=== PATIENT | male | born 1935 | race Caucasian/White ===

== ENCOUNTER 2016-10-01 18:26 | Inpatient (IN) ==
--- NOTE | 2016-10-01 18:54 | Emergency Department Note ---
Disposition Clinical Impression: Cerebrovascular accident Disposition: Admitted As Inpatient Condition: Good General Adult HPI - General Chief complaint: ED Neuro Symptoms/Deficit Stated complaint: cva Time Seen by Provider: 10/01/16 18:35 Source: EMS - History of Present Illness Pain Scale: 0 - Related Data Home Medications Medication Instructions Recorded Confirmed Hydrochlorothiazide 25 mg PO DAILY 10/01/16 10/01/16 Insulin ASPART [Novolog Flexpen] 4 unit SQ BID 10/01/16 10/02/16 Insulin ASPART [Novolog Flexpen] 8 unit SQ QPM 10/01/16 10/01/16 Insulin Glargine [Lantus] 36 unit SQ HS 10/01/16 10/01/16 Losartan [Cozaar] 25 mg PO DAILY 10/01/16 10/01/16 Metformin HCl [Metformin HCl ER] 1,000 mg PO QPM 10/01/16 10/01/16 Metoprolol [Lopressor] 12.5 mg PO BID 10/01/16 10/01/16 Pantoprazole Sodium [Protonix] 20 mg PO BID 10/01/16 10/01/16 Simvastatin [Zocor] 80 mg PO QPM 10/01/16 10/01/16 Warfarin [Coumadin] 4 mg PO 1800 10/01/16 10/01/16 Allergies Allergy/AdvReac Type Severity Reaction Status Date / Time No Known Allergies Allergy Verified 10/01/16 20:26 Past Medical History - Past Medical History Medical history: Reports: atrial fibrillation, coronary artery disease, diabetes , GERD, hyperlipidemia, hypertension - Social History Smoking Status: Former smoker Smokeless Tobacco Status: No Alcohol use: Reports: none Drug use: Reports: none Physical Exam - General General appearance: alert, in no apparent distress Course - Reevaluation(s) Reevaluation #1: Saw the patient with the resident, Dr. Ham. Patient was sent over from the [facility] due to concern about stroke. Patient started having symptoms 4 days ago. Symptoms include weakness of hand and arm on the right-hand side. Eventually developed some speech issues and trouble finding words. Extremity symptoms have resolved at this point and speech issues reportedly have improved as well. He did not present at the time of onset because [place] and [place] not want have to be stuck in a hospital down there. He is, home and first thing he did was go to the [facility] to be looked at. They sent him here after CT scan showed evidence of subacute stroke. On examination we see the patient having some trouble finding words but otherwise the rest of the neurologic examination is unremarkable. His laboratory workup is Re: Been done at the [facility]. No significant abnormalities are there. We will then proceed with MRI. It is unclear as to what the disposition should be on this patient given that symptoms started 4 days ago and are improving significantly. We will discuss the case with neurology once the MRI is done. Time: 18:53 Reevaluation #2: MRI came back showing acute infarcts in the left frontal, parietal, and thalamic regions. I discussed this with the radiologist and specifically asked when he is saying acute does he mean 4 days ago her to see me now, and he says that it is acute meaning that is happening now. We immediately called the neurologist on-call to discuss the findings because the MRI findings are not entirely consistent with the patient's presentation at this time. He really has no neurologic deficit except for trouble finding words at times. His NIH is a 1, 2 at the most if he stretches. He is currently on Coumadin with an INR 1.7. Symptom onset was 4 days ago. For all these reasons, he is not a TPA candidate. Based on the neurologist guidance, we will admit the patient to the hospital. He thinks the patient needs a CTA of the neck and head. Patient's GFR is low. He needs to be hydrated before he gets the CTA. Neurologist was okay with this. We will arrange to get the patient admitted to the hospitalist. Time: 20:25 Vital Signs Temperature 98.2 F 10/01/16 18:30 Pulse Rate 105 10/01/16 18:30 Respiratory Rate 14 10/01/16 18:30 Blood Pressure 170/102 10/01/16 18:30 O2 Sat by Pulse Oximetry 96 10/01/16 18:30 Temperature 97.6 F 10/03/16 07:00 Pulse Rate 83 10/03/16 07:30 Respiratory Rate 16 10/03/16 07:30 Blood Pressure 106/77 10/03/16 07:30 O2 Sat by Pulse Oximetry 97 10/03/16 07:00 Oxygen Delivery Oxygen Delivery Room Air Medical Decision Making - Lab Data Result diagrams: 10/03/16 04:00 10/03/16 04:00 Lab Results 10/01/16 Range/Units 18:47 POC Glucose 146 H (58-89) Attestation Statement - Attestation Attestation: I, Dr. Hatfield, examined this patient [id number] and my medical decision- making was reviewed with Dr. Ham, Resident Physician. I agree with the documented findings, disposition and treatment plan as described except to the extent set forth below. Please see my progress notes for details.
--- NOTE | 2016-10-01 19:22 | Emergency Department Note ---
Disposition Clinical Impression: Cerebrovascular accident Qualifiers: CVA mechanism: unspecified Qualified Code(s): I63.9 - Cerebral infarction, unspecified Disposition: Admitted As Inpatient Condition: Good Time of Disposition: 21:02 Neuro HPI - General Chief Complaint: ED Neuro Symptoms/Deficit Stated Complaint: cva Time Seen by Provider: 10/01/16 18:35 Source: EMS Mode of arrival: EMS Limitations: no limitations Nursing Notes Reviewed: Yes Vital Signs Reviewed: Yes - History of Present Illness HPI Narrative: Mr. Márquez is a 81-year-old male with a PMH of DM, A. fib currently anticoagulated on Coumadin, hyperlipidemia, HTN, CAD who presents to the emergency department complaining of right arm weakness that began on Friday. The patient states that he was vacationing in [place] to experience weakness of the right arm, confusion. He deferred evaluation at that time because he did not want to be admitted to a hospital away from home. He arrived [facility] on Friday, [facility] He states that his weakness has resolved, however he is still experiencing difficulty with word finding and confusion. He states that his head feels "befuddled." He does note that he has some blurred vision in the right eye. He denies any difficulty with ambulation, balance problems, weakness, dizziness, chest pain, cough, wheezing, shortness of breath, abdominal pain, nausea, vomiting or diarrhea, numbness or tingling of any extremities. - Related Data Home Medications: Home Medications Medication Instructions Recorded Confirmed Hydrochlorothiazide 25 mg PO DAILY 10/01/16 10/01/16 Insulin ASPART [Novolog Flexpen] 4 unit SQ BID 10/01/16 10/01/16 Insulin ASPART [Novolog Flexpen] 8 unit SQ QPM 10/01/16 10/01/16 Insulin Glargine [Lantus] 36 unit SQ HS 10/01/16 10/01/16 Losartan [Cozaar] 25 mg PO DAILY 10/01/16 10/01/16 Metformin HCl [Metformin HCl ER] 1,000 mg PO QPM 10/01/16 10/01/16 Metoprolol [Lopressor] 12.5 mg PO BID 10/01/16 10/01/16 [place]-3/Dha/Epa/Fish Oil [Fish Oil 1,000 mg PO BID 10/01/16 10/01/16 1,000 mg Softgel] Pantoprazole Sodium [Protonix] 20 mg PO BID 10/01/16 10/01/16 Simvastatin [Zocor] 80 mg PO QPM 10/01/16 10/01/16 Warfarin [Coumadin] 4 mg PO 1800 10/01/16 10/01/16 Allergies/Adverse Reactions: Allergies Allergy/AdvReac Type Severity Reaction Status Date / Time No Known Allergies Allergy Verified 10/01/16 20:26 All systems ED: reviewed and negative except as stated. Past Medical History - Past Medical History Source: patient Medical history: Reports: atrial fibrillation, coronary artery disease, diabetes , GERD, hyperlipidemia, hypertension - Social History Smoking Status: Former smoker Smokeless Tobacco Status: No Alcohol use: Reports: none Drug use: Reports: none Physical Exam - General General appearance: alert, in no apparent distress - Head Head exam: atraumatic, normocephalic, normal inspection - Eye Eye exam: Present: normal appearance, PERRL, EOMI. Absent: nystagmus - ENT ENT exam: normal exam, normal oropharynx, mucous membranes moist - Neck Neck exam: Present: normal inspection, full ROM, trachea midline. Absent: tenderness, lymphadenopathy, thyromegaly - Chest Chest inspection: Present: normal inspection, symmetric chest wall rise. Absent : tenderness - Respiratory Respiratory exam: Present: normal lung sounds bilaterally. Absent: respiratory distress - Cardiovascular Cardiovascular exam: Present: regular rate, normal rhythm, normal heart sounds - Abdominal Exam Abdominal exam: Present: soft, Non-Tender, normal bowel sounds. Absent: tenderness, distention, guarding, rebound, rigidity - Extremities Exam Extremities exam: Present: normal inspection, full ROM, normal capillary refill. Absent: tenderness, pedal edema, calf tenderness - Back Exam Back exam: Present: normal inspection, full ROM. Absent: tenderness, CVA tenderness (R), CVA tenderness (L) - Neurological Exam Neurological exam: Present: alert, oriented X3, CN II-XII intact, normal gait. Absent: motor sensory deficit - Expanded Neurological Exam Patient oriented to: Present: person, place, time Speech: Present: fluid speech, expressive aphasia Cranial nerves: EOM function (II, III, IV, ): Normal, facial sensation (V): Normal, facial palsy (VII): Normal, gag reflex (IX): Normal, spinal accessory function (XI): Normal, tongue deviation (XII): Normal Cerebellar function: finger to nose: Normal, heel to baumann: Normal Motor strength - LUE: 5/5 Motor strength - RUE: 5/5 Motor strength - LLE: 5/5 Motor strength - RLE: 5/5 Upper motor neuron exam: herlinda neglect: Absent bilaterally, pronator drift: Absent bilaterally Sensory exam upper extremity: light touch: Normal Sensory exam lower extremity: light touch: Normal DTR: bicep (L): 2+, bicep (R): 2+, brachioradialis (L): 2+, brachioradialis (R) : 2+, patellar (L): 2+, patellar (R): 2+, Achilles tendon (L): 2+, Achilles tendon (R): 2+ Coma Scale Eye Opening: Spontaneous Coma Scale Motor Response: Obeys Commands Coma Scale Verbal Response: Oriented Coma Scale Total: 15 - Psychiatric Psychiatric exam: Present: normal affect, normal mood - Skin Skin exam: Present: warm, dry, intact, normal color. Absent: rash, diaphoresis , erythema Course Course Narrative: 81-year-old male with a PMH of DM, A. fib currently anticoagulated on Coumadin, hyperlipidemia, HTN, CAD who presents to the emergency department complaining of right arm weakness that began on Friday. The patient states that he was vacationing in [place] to experience weakness of the right arm, confusion. He deferred evaluation at that time because he did not want to be admitted to a hospital away from home. He arrived home on Friday, [facility]. He states that his weakness has resolved, however he is still experiencing difficulty with word finding and confusion. He states that his head feels "befuddled." He does note that he has some blurred vision in the right eye. He denies any difficulty with ambulation, balance problems, weakness, dizziness, chest pain, cough, wheezing, shortness of breath, abdominal pain, nausea, vomiting or diarrhea, numbness or tingling of any extremities. Patient is able to ambulate without difficulty. There are no focal abnormalities in his neurologic exam. He is alert and oriented to person, place , time. CN II-XII intact as tested. Muscle strength is 5\\5 upper extremities and lower extremities bilaterally. There is no sensory deficit on any extremities bilaterally. Coordination is intact. When the patient is talking, his speech is not slurred however he does seem to have difficulty finding certain words while he is conversing. Remainder of his exam is within normal limits. [facility] the head CT without contrast reveals no evidence of intracranial hemorrhage. There is a cortically based infarct in the left occipital lobe which may be recent\\subacute. Age indeterminate lacunar infarct in the left thalamus is also noted, with mild patchy low density in the periventricular white matter. CBC WNL. BMP essentially WNL, creatinine is elevated at 1.68, this appears to be at his baseline. INR subtherapeutic at 1.7. We will order an MRI to further evaluate the patient. poc glucose 146. Radiologist called with MRI results of acute microinfarcts within the left frontal lobe, left parietal lobe and left thalamus. Discussed the case with Dr. Jean with neurology. He feels that with patient' s symptomatology being all on the right, it is more likely that the clots are coming from carotid artery vs the atria. He would like to do a CTA to assess the carotid arteries however the patient's Cr is 1.68 and we are unable to do this. He would like to admit the patient overnight to evaluate the carotid arteries in the morning and perform an echo. His INR is 1.7, which is subtherapeutic. He would like to give an extra dose of the patient's Coumadin tonight to try to increase his INR into the therapeutic range. He will see the patient in the morning. Will admit to hospitalist service. The patient and his were updated on this plan and all questions were answered. - Reevaluation(s) Reevaluation #1: Patient updated on MRI results and plan. He denies any new or worsening symptoms. Time: 20:30 - Consultations Consultation #1: Discussed the case with Dr. Jean with neurology. He feels that with patient' s symptomatology being all on the right, it is more likely that the clots are coming from carotid artery vs the atria. He would like to do a CTA to assess the carotid arteries however the patient's Cr is 1.68 and we are unable to do this. He would like to admit the patient overnight to evaluate the carotid arteries in the morning and perform an echo. His INR is 1.7, which is subtherapeutic. He would like to give an extra dose of the patient's Coumadin tonight to try to increase his INR into the therapeutic range. He will see the patient in the morning. Time: 20:25 Consultation #2: Discussed the case with Dr. Saxena who has accepted the patient for admission. We discussed the coumadin dosing. The patient has not had his 4mg dose today. He states that they will evaluate the patient and order the evening coumadin dose. He has requested an EKG, which I have placed an order for. Vital Signs Temperature 98.2 F 10/01/16 18:30 Pulse Rate 105 10/01/16 18:30 Respiratory Rate 14 10/01/16 18:30 Blood Pressure 170/102 10/01/16 18:30 O2 Sat by Pulse Oximetry 96 10/01/16 18:30 Temperature 98.2 F 10/01/16 18:30 Pulse Rate 98 10/01/16 20:46 Respiratory Rate 16 10/01/16 22:00 Blood Pressure 141/95 10/01/16 22:00 O2 Sat by Pulse Oximetry 96 10/01/16 20:46 Oxygen Delivery Oxygen Delivery Room Air Neuro Symptoms/Deficit - Medical Records Medical records reviewed: Yes I reviewed the patient's medical records. - Lab Data Lab results reviewed: Yes I reviewed the patient's lab results. Lab Results 10/01/16 Range/Units 18:47 POC Glucose 146 H (58-89) - Radiology Data Radiology results reviewed: Yes I reviewed the patient's radiology results. Brain MRI 10/01/16 18:49 IMPRESSION: Acute microinfarcts within the left frontal lobe, the left parietal lobe, and the left thalamus. Case discussed with Dr. Ibarra at 8:06 p.m. on 10/01/2016. D/ / Corey Sharpe MD / Corey Sharpe MD Interpreting Provider: Corey Sharpe MD Checklist - LKW: 3-4.5 hrs Add. Contraindications Patient/family understanding: The patient/family members have been counseled and understood the risk, benefit , and alternatives of treatment.
[2016-10-01] MEDS ORDERED: Acetaminophen 325 MG TABLET PO PRN (22:39)
[2016-10-01 23:03] LABS: INR 1.8; Prothrombin Time 19.3 Seconds (9.4-12.1)
[2016-10-01 23:09] LABS: Basophils # 0.1 K/mcL (0.0-0.2); Basophils % 0.8 %; Eosinophils # 0.1 K/mcL (0.0-0.6); Eosinophils % 1.6 %; Hematocrit 50.3 % (37.5-50.1); Hemoglobin 16.6 g/dL (12.9-16.9); Immature Granulocytes % 0.4 % (0-4); Lymphocytes # 1.8 K/mcL (0.6-4.6); Lymphocytes % 19.7 %; Mean Corpuscular Hemoglobin 27.8 pg (28.0-33.3); Mean Corpuscular Volume 84.1 fL (83.0-100.0); Mean Platelet Volume 12.4 fL (9.4-12.4); Monocytes # 0.9 K/mcL (0.0-1.3); Monocytes % 10.5 %; Platelet Count 172 K/mcL (140-400); Red Blood Count 5.98 M/mcL (4.19-5.50); Red Cell Distribution Width 15.4 % (11.5-14.5)
[2016-10-01] MEDS ORDERED: *HR* Warfarin 4 MG TABLET PO ONE (23:15)
[2016-10-01 23:17] LABS: Calcium 10.5 mg/dL (8.6-10.8)
[2016-10-01] MEDS ORDERED: *HR* Dextrose 50 % in Water (Syg) 50 ML SYRINGE IVP PRN (23:25)
[2016-10-01] MEDS ORDERED: Dextrose Gel 15 GM PO PRN ×2 (23:25)
[2016-10-01] MEDS ORDERED: D5% in Water 1,000 ML IV PRN (23:25)
[2016-10-01] MEDS ORDERED: 0.9 % Sodium Chloride 1,000 ML IVC SCH (23:30)
--- NOTE | 2016-10-01 23:32 | Internal Med History&Physical ---
<Duncan Kumar - Last Filed: 10/02/16 00:16> Date of Encounter: 10/02/16 Time of Encounter: 11:00 Assessment and Plan (1) Cerebrovascular accident Current visit: Yes Status: Acute Patient complains of right sided upper extremity weakness that began on Friday while he was on vacation. He did not seek medical help until today. He denies ever having slurred speech or facial drooping. CN 2-12 are intact, muscle strength is now 5/5 bilaterally, no focal deficits. CT [facility] showed no evidence of intracranial hemorrhage; cortically based infarct in the left occipital lobe which may be recent or subacute. Also showed age indeterminate lacunar infarct in the left thalamus. MRI head showed acute microinfarcts within the left frontal lobe, left parietal lobe, and left thalamus. Neurology consulted- Dr. Jean was contacted by ED staff. Per neurology, clots are likely coming from carotid artery vs. Atria. Consider CTA carotids after fluid hydration if Cr normalizes. Can re-evaluate this option tomorrow. Pharmacy dosing warfarin. resume home statin Start ASA EV echo pending Carotid duplex ordered. patient passed bedside swallow eval. Consult to speech therapy made. Consult to PT/OT Qualifiers: CVA mechanism: unspecified Qualified Code(s): I63.9 - Cerebral infarction, unspecified (2) Elevated serum creatinine Current visit: Yes Status: Acute Patient has baseline CKD III Serum Cr measured at 1.43, unsure if this is his baseline or not. Hold HCTZ, losartan. IVF at 75 ml/hr. If Cr function normalizes, consider CTA carotids. (3) Hypertension Current visit: Yes Status: Acute continue to monitor. Qualifiers: Hypertension type: essential hypertension Qualified Code(s): I10 - Essential (primary) hypertension (4) Diabetes Current visit: Yes Status: Chronic 18 units basal insulin with low dose sliding scale Diabetic diet. A1C pending consult to life skills educator. Qualifiers: Diabetes mellitus type: other specified (including MARLENA) Diabetes mellitus complication status: with unspecified complications Diabetes mellitus terminologist insulin use: unspecified snf insulin use status Qualified Code(s): E13.8 - Other specified diabetes mellitus with unspecified complications (5) HLD (hyperlipidemia) Current visit: Yes Status: Acute continue home med statin Qualifiers: Hyperlipidemia type: unspecified Qualified Code(s): E78.5 - Hyperlipidemia , unspecified (6) GERD (gastroesophageal reflux disease) Current visit: Yes Status: Acute continue home med prilosec. Qualifiers: Esophagitis presence: esophagitis presence not specified Qualified Code(s) : K21.9 - Gastro-esophageal reflux disease without esophagitis (7) CKD (chronic kidney disease), stage III Current visit: Yes Status: Acute no previous record indicating baseline Cr and GFR. Continue to monitor. (8) Afib Current visit: Yes Status: Acute continue lopressor. Continue warfarin to bring INR to therapeutic range. Pharmacy is dosing. Qualifiers: Atrial fibrillation type: chronic Qualified Code(s): I48.2 - Chronic atrial fibrillation (9) DVT prophylaxis Current visit: Yes Status: Acute Pt on warfarin for Afib Internal Medicine - H&P: HPI Chief complaint: weakness Admitted From: Emergency Dept Plans for Post Hospital Care: Home History of present illness: PCP: Gissel Carmona Mr. Márquez is a 81 year old male with PMHx of DM, Afib (on coumadin), HLD, CAD, HTN, GERD, CKD stage III, PVD (s/p fem-fem bypass in 1997) came to the ED with CC of right arm weakness that began Friday morning when he was in [place]. Patient has hx of prior stroke in Sep 2015. He denies having numbness and tingling, or motor deficits. He denies facial drooping or slurred speech at that time. He did not seek medical help at this time. On Friday evening, he started having slurred speech and mild dysphasia with forgetfulness that is still present (patient states he had trouble remembering simple things, such as the last four digits of his social security number). He came home from [place] on Friday, and [facility]. As of this morning, his weakness had resolved but he still had mild dysphasia and forgetfulness. Patient denies facial drooping, gait abnormalities, blood in urine or stool. He has had a productive cough with white sputum production. He denies dizziness, syncope, trouble swallowing, chest pain, SOB. Social Hx: lives at home with his . Not a current smoker, but smoked for 40 years, 2PPD. He quit smoking in 1989. Denies alcohol or illicit drug use. Family Hx: Mom at 67 with cancer, father at 48 from [place]. Surgical Hx: fem-fem bypass in 1997, Had surgery for Barrets esophagus. Past Med Surg Social Fam HX - Past Medical History Medical history: atrial fibrillation, coronary artery disease, diabetes, GERD, hyperlipidemia, hypertension - Social History Smoking Status: Former smoker Smokeless Tobacco Status: No Alcohol use: none Drug use: none Internal Medicine - H&P: Meds Hydrochlorothiazide 25 mg PO DAILY 10/01/16 [History] Insulin ASPART [Novolog Flexpen] 4 unit SQ BID 10/01/16 [History] Insulin ASPART [Novolog Flexpen] 8 unit SQ QPM 10/01/16 [History] Insulin Glargine [Lantus] 36 unit SQ HS 10/01/16 [History] Losartan [Cozaar] 25 mg PO DAILY 10/01/16 [History] Metformin HCl [Metformin HCl ER] 1,000 mg PO QPM 10/01/16 [History] Metoprolol [Lopressor] 12.5 mg PO BID 10/01/16 [History] Pantoprazole Sodium [Protonix] 20 mg PO BID 10/01/16 [History] Simvastatin [Zocor] 80 mg PO QPM 10/01/16 [History] Warfarin [Coumadin] 4 mg PO 1800 10/01/16 [History] Allergies No Known Allergies Allergy (Verified 10/01/16 20:26) All Systems PM: A 10-system review of systems was performed and is negative for pertinent findings except as documented above in the HPI. - Constitutional Constitutional: weakness, no chills, no fever(s), no falls, no lethargy - EENT Eyes: no blurry vision Nose, mouth and throat: no odynophagia - Cardiovascular Cardiovascular ROS IM: no chest pain, no dyspnea, no syncope - Respiratory Respiratory: cough - Gastrointestinal Gastrointestinal: no abdominal pain, no coffee ground emesis - Neurological Neurological ROS: no abnormal gait, no abnormal movements, no behavioral changes - Constitutional Vitals: Temp Pulse Resp BP Pulse Ox 98.2 F 98 16 141/95 96 10/01/16 18:30 10/01/16 20:46 10/01/16 22:00 10/01/16 22:00 10/01/16 20:46 General appearance: Present: A&O X 3, pleasant, no acute distress, answers questions appropriately - Head Head exam: Present: atraumatic, normocephalic - Eye Eye exam: Present: PERRL Pupils: Present: PERRL - Neck Neck exam general surgery: Present: supple, trachea midline - Expanded Neck Exam Neck exam: Present: carotid bruit (on right) - Respiratory Respiratory exam: Present: decreased breath sounds (on lower lobes), wheezes ( expiratory wheezing noted.) - Cardiovascular Cardiovascular exam: Present: RRR, +S1, +S2 (murmur noted. ) - GI/Abdominal GI/Abdominal exam: Present: normal bowel sounds, soft. Absent: tenderness Additional comments: scar present in midline abdomen. - Extremities Exam Extremities exam: Absent: cyanotic, pedal edema - Neurological Exam Neurological exam: Present: alert, CN II-XII intact, oriented X3, no focal deficits, strengths equal and symetr throughout. Absent: motor sensory deficit , facial droop - Psychiatric Psychiatric exam: Present: normal affect, normal mood Internal Med - H&P Results - Labs CBC & Chem 7: 10/01/16 22:47 10/01/16 22:47 <Herbie Saxena - Last Filed: 10/02/16 03:17> Date of Encounter: 10/02/16 All Systems PM: A 10-system review of systems was performed and is negative for pertinent findings except as documented above in the HPI. - Constitutional Vitals: Temp Pulse Resp BP Pulse Ox 97.6 F 96 16 111/75 96 10/01/16 22:36 10/02/16 02:30 10/02/16 02:30 10/02/16 02:30 10/01/16 20:46 General appearance: Present: A&O X 3, pleasant, no acute distress - Head Head exam: Present: atraumatic, normocephalic - Eye Eye exam: Present: EOMI, PERRL. Absent: scleral icterus Pupils: Present: normal accommodation - ENT ENT exam: Present: mucous membranes moist, normal exam - Neck Neck exam general surgery: Present: full ROM, supple. Absent: tenderness - Expanded Neck Exam Neck exam: Present: carotid bruit - Respiratory Respiratory exam: Present: decreased breath sounds, wheezes. Absent: chest wall tenderness - Cardiovascular Cardiovascular exam: Present: RRR, +S1, +S2 - GI/Abdominal GI/Abdominal exam: Present: soft. Absent: tenderness - Extremities Exam Extremities exam: Present: full ROM. Absent: calf tenderness, joint swelling - Neurological Exam Neurological exam: Present: CN II-XII intact, no focal deficits Additional comments: occasionally has expressive dysphasia; most of the time, his speech is intelligible - Skin Skin exam: Present: dry, warm. Absent: rash Internal Med - H&P Results - Labs CBC & Chem 7: 10/01/16 22:47 10/01/16 22:47 Labs: Short CBC 10/01/16 Range/Units 22:47 WBC 8.9 (4.3-11.1) K/mcL Hgb 16.6 (12.9-16.9) g/dL Hct 50.3 H (37.5-50.1) % Plt Count 172 (140-400) K/mcL Neutrophils # 6.0 (1.6-8.9) K/mcL BMP 10/01/16 22:47 Sodium 138 Potassium 4.0 Chloride 105 Carbon Dioxide 20 BUN 24 Creatinine 1.43 H Glucose 142 H Calcium 10.5 - EKG Data -: EKG Interpreted by Myself - EKG Data Prior EKG available for review: no EKG comments: 10/02/16 03:13 atrial fibrillation - Attending Attestation I discussed the patient CACHIL DEHE, PMH, ROS, lab data, and exam findings with Dr. Kumar. I then saw and examined patient independently as well. Pt and confirm the same history provided to me by Dr. Kumar. On my exam, I note no focal neurologic deficit other than occasional episodes of expressive aphasia/ dysphasia. Most of the time, his speech is normal and intelligible. He will need work-up as detailed by Dr. Kumar. Neurology has already been consulted. Pt has multiple risk factors for stroke. He has chronic atrial fibrillation and has been on Coumadin for 5 years. Other than my comments and noted exam findings, I agree with Dr. Kumar' assessment and plan.
[2016-10-02 06:00] LABS: Basophils % 0.5 %; Eosinophils # 0.1 K/mcL (0.0-0.6); Eosinophils % 1.7 %; Hemoglobin 14.5 g/dL (12.9-16.9); Immature Granulocytes % 0.5 % (0-4); Lymphocytes # 1.5 K/mcL (0.6-4.6); Lymphocytes % 18.2 %; Mean Corpuscular Hemoglobin 28.3 pg (28.0-33.3); Mean Corpuscular Volume 85.9 fL (83.0-100.0); Mean Platelet Volume 12.6 fL (9.4-12.4); Monocytes % 12.3 %; Neutrophils # 5.5 K/mcL (1.6-8.9); Platelet Count 157 K/mcL (140-400); Red Blood Count 5.12 M/mcL (4.19-5.50); Red Cell Distribution Width 14.9 % (11.5-14.5); Segmented Neutrophils % 66.8 %
[2016-10-02 06:01] LABS: INR 1.9; Prothrombin Time 20.4 Seconds (9.4-12.1)
[2016-10-02 06:17] LABS: Calcium 9.8 mg/dL (8.6-10.8); Chol/HDL Ratio 4.9 (0-4.9); Potassium 4.2 mEq/L (3.5-4.5)
[2016-10-02] MEDS ORDERED: *HR* Warfarin 4 MG TABLET PO ONE ×2 (09:32→18:00)
--- NOTE | 2016-10-02 10:00 | Neurology - Consult Note ---
<Chidi Brown - Last Filed: 10/02/16 09:56> Date of Encounter: 10/02/16 Time of Encounter: 09:56 Assessment and Plan (1) Cerebrovascular accident Current Visit: Yes Status: Acute - symptoms are resolving now, only complaint is trouble finding words and is about the same from yesterday and is minimal, numbness has improved - MRI showed several L sided acute micro infarcts - Carotid US and Echo pending - Slightly sub-therapeutic on his INR, will give extra home dose now (4mg) and recheck INR in 12 hours. - Taken off Aspirin in May 2016, will restart today - Further recommendations pending attending evaluation Qualifiers: CVA mechanism: unspecified Qualified Code(s): I63.9 - Cerebral infarction, unspecified History of Present Illness Chief complaint: aphasia HPI: Mr. Márquez is a 81 year old male who presented through the [facility] from the [facility] with the chief complaint, weakness and expressive aphasia. onset of symptoms was approximately 4 days ago. When he presented to the [facility] he was having mild numbness and tingling in his RUE. His main complaint at that time was feeling confused and "not being able to find my words" He was transferred to the ED where he had an MRI of the brain which showed acute micro ischemia of the L frontal, L parietal, and L thalamus. Patient reports the symptoms in his RUE have resolved but that he still feels like he has trouble finding words. Denies headache or changes in vision. No other complaints. Eating breakfast currently. His states that his basket braider took him off of aspirin in May for an unknown reason. Patient also reports issues with his Coumadin levels recently with them being too low. Past Med Surg Social Fam HX - Past Medical History Medical history: atrial fibrillation, coronary artery disease, diabetes, GERD, hyperlipidemia, hypertension Psychiatric history: no psych history - Past Surgical History Surgical History: ureteral stent - Social History Smoking Status: Former smoker Smokeless Tobacco Status: No Alcohol use: none Drug use: none - Family History Father Living Status: Age at : 48 Cause of : PR Hx Family Cardiac Disorders: Yes Hx Family Cancer: Yes Hx Family GI Disorders: No Hx Family Genitourinary Disorders: No Hx Family Endocrine Disorder: Yes Hx Family Musculoskeletal Disorders: No Hx Family Neuromuscular Disorders: No Hx Family Neurologic Disorders: No Hx Family HEENT Disorders: No Hx Family Autoimmune Disorders: No Hx Family Reproductive Disorders: No Hx Family Psychosocial Disorders: No Hx Family Medical Disorders: No Medications and Allergies Hydrochlorothiazide 25 mg PO DAILY 10/01/16 [History] Insulin ASPART [Novolog Flexpen] 4 unit SQ BID 10/01/16 [History] Insulin ASPART [Novolog Flexpen] 8 unit SQ QPM 10/01/16 [History] Insulin Glargine [Lantus] 36 unit SQ HS 10/01/16 [History] Losartan [Cozaar] 25 mg PO DAILY 10/01/16 [History] Metformin HCl [Metformin HCl ER] 1,000 mg PO QPM 10/01/16 [History] Metoprolol [Lopressor] 12.5 mg PO BID 10/01/16 [History] Pantoprazole Sodium [Protonix] 20 mg PO BID 10/01/16 [History] Simvastatin [Zocor] 80 mg PO QPM 10/01/16 [History] Warfarin [Coumadin] 4 mg PO 1800 10/01/16 [History] Allergies No Known Allergies Allergy (Verified 10/01/16 20:26) All Systems: A 10-system review of systems was performed and is negative for pertinent findings except as documented above in the HPI. - Constitutional Constitutional ROS IM: no fatigue, no lethargy - Eyes Eyes: bilateral: blurred vision (negative ), diplopia (negative ) - Nose, Mouth, Throat Nose, mouth and throat: no headache(s) - Cardiovascular Cardiovascular ROS IM: no chest pain - Respiratory Respiratory IM: no cough, no dyspnea - Gastrointestinal Gastrointestinal: no abdominal pain - Musculoskeletal Musculoskeletal ROS IM: numbness (resolved now in RUE ), no abnormal gait, no back pain, no neck pain - Integumentary Integumentary IM: no rash - Neurological Neurological ROS: abnormal speech, confusion, numbness, paresthesias, no abnormal gait, no abnormal movements, no behavioral changes, no disequilibrium, no dizziness, no focal weakness, no headache(s), no loss of vision, no syncope Physical Examination - Vital Signs Vital Signs: Initial Vital Signs Temp Pulse Resp BP Pulse Ox 98.2 F 105 14 170/102 96 10/01/16 18:30 10/01/16 18:30 10/01/16 18:30 10/01/16 18:30 10/01/16 18:30 - Constitutional General appearance: comfortable - Neurologic Detailed motor examination: full strength in all major muscle groups Motor examination - right side: 01/03: deltoids, biceps, triceps, wrist flexion, wrist extension, tree doctor, hip flexors, tibialis Anterior, quadriceps, toe extension (EHL), plantarflexion Motor examination - left side: 01/03: deltoids, biceps, triceps, wrist flexion, wrist extension, hip flexors, tree doctor, quadriceps, tibialis Anterior, toe extension (EHL), plantarflexion Detailed sensory examination: intact Mental Status Examination: awake, alert, oriented to person, oriented to place, oriented to time, follows commands appropriately, answers questions appropriately, no agnosia, no aproxia, makes eye contact, expressive aphasia ( very mild, does have trouble finding some words but there is no other changes in his speech ) Cranial nerve examination: PERRL, EOMI, visual willson intact, sensory to face intact, mastication intact, no facial asymmetry is present, hearing is intact symmetrically, flexes SCM and trapezius muscles symmetrically with full power, no atrophy or facial fasiculations present Cerebellar examination: no truncal ataxia, no difficulty with rapid alternating movements Results - Laboratory Findings CBC and BMP: 10/02/16 05:25 10/02/16 05:25 Abnormal lab findings: Abnormal lab results RDW 14.9 % (11.5-14.5) H 10/02/16 05:25 MPV 12.6 fL (9.4-12.4) H 10/02/16 05:25 PT 20.4 Seconds (9.4-12.1) H 10/02/16 05:25 Creatinine 1.69 mg/dL (0.72-1.25) H 10/02/16 05:25 Est GFR ( Amer) 48 (> 60) L 10/02/16 05:25 Est GFR (Non-Af Amer) 39 (> 60) L 10/02/16 05:25 Glucose 319 mg/dL (70-99) H 10/02/16 05:25 POC Glucose 146 (58-89) H 10/01/16 18:47 Calculated Osmolality 303 (280-300) H 10/02/16 05:25 Triglycerides 214 mg/dL (< 150) H 10/02/16 05:25 VLDL Cholesterol, Calc 43 mg/dL (< 31) H 10/02/16 05:25 HDL Cholesterol 29 mg/dL (40-59) L 10/02/16 05:25 Consult Discharge Plan - Plan [facility]: [facility] Provider[facility] - <Mary Jean I - Last Filed: 10/02/16 16:00> Date of Encounter: 10/02/16 Assessment and Plan (1) Cerebrovascular accident Current Visit: Yes Status: Acute Patient seen and examined agreed with Dr. Murillo findings as well as assessment. Patient is slightly low therapeutic with current INR is 1.9 suggested to increase the dose of the Coumadin and adjust accordingly do not think that he would require any bridging at this time. We will follow up the results of his echo and carotid. No significant deficit do not think that he would require any short-term rehabilitation but we will ask physical therapy to assist the patient Mary jean MD Qualifiers: CVA mechanism: unspecified Qualified Code(s): I63.9 - Cerebral infarction, unspecified History of Present Illness HPI: Mr. Márquez is a 81 year old male All Systems: A 10-system review of systems was performed and is negative for pertinent findings except as documented above in the HPI. Physical Examination - Vital Signs Vital Signs: Initial Vital Signs Temp Pulse Resp BP Pulse Ox 98.2 F 105 14 170/102 96 10/01/16 18:30 10/01/16 18:30 10/01/16 18:30 10/01/16 18:30 10/01/16 18:30 Results - Laboratory Findings CBC and BMP: 10/02/16 05:25 10/02/16 05:25 Abnormal lab findings: Abnormal lab results RDW 14.9 % (11.5-14.5) H 10/02/16 05:25 MPV 12.6 fL (9.4-12.4) H 10/02/16 05:25 PT 20.4 Seconds (9.4-12.1) H 10/02/16 05:25 Creatinine 1.69 mg/dL (0.72-1.25) H 10/02/16 05:25 Est GFR ( Amer) 48 (> 60) L 10/02/16 05:25 Est GFR (Non-Af Amer) 39 (> 60) L 10/02/16 05:25 Glucose 319 mg/dL (70-99) H 10/02/16 05:25 POC Glucose 146 (58-89) H 10/01/16 18:47 Calculated Osmolality 303 (280-300) H 10/02/16 05:25 Triglycerides 214 mg/dL (< 150) H 10/02/16 05:25 VLDL Cholesterol, Calc 43 mg/dL (< 31) H 10/02/16 05:25 HDL Cholesterol 29 mg/dL (40-59) L 10/02/16 05:25
--- NOTE | 2016-10-02 10:11 | Internal Med Progress Note ---
<Jassi Jaramillo - Last Filed: 10/02/16 16:19> Date of Encounter: 10/02/16 Time of Encounter: 08:15 - Assessment and plan (1) Cerebrovascular accident Current Visit: Yes Status: Acute Assessment and plan: -MRI shows acute microinfarctions in the left frontal lobe, the parietal lobe, the left thalamus along with chronic lacunar infarcts -Echo shows left ventricular ejection fraction 55-60%, mild stenosis and regurgitation. Otherwise normal exam -Carotid ultrasound pending -Patient's only complaint is some memory deficit, particularly with numbers and trouble finding words. Otherwise feel he is back to baseline. -Slightly sub-therapeutic on is INR -FRANKIE worsening Plan -Per pharmacy recommendation, will start heparin drip and continue warfarin till therapeutic. No lovenox because of renal function. -Neurology on board. Thank you for your recommendations. -Aspirin restarted today -Possible discharge within 2 days pending Renal function, INR/PTT, mental status function. Qualifiers: CVA mechanism: unspecified Qualified Code(s): I63.9 - Cerebral infarction, unspecified (2) Afib Current Visit: Yes Status: Acute Assessment and plan: -Echo results above -Patient has had known murmur for "years". Currently takes metoprolol for A. fib 12.5mg. denies any chest pain, shortness of breath. Is asymptomatic. With a heart rate in the 70-80's. Rate controlled. No need to make adjustments. Plan -Continue with current therapy. Qualifiers: Atrial fibrillation type: chronic Qualified Code(s): I48.2 - Chronic atrial fibrillation (3) CKD (chronic kidney disease), stage III Current Visit: Yes Status: Acute Assessment and plan: -Worsening Renal function. Possibly due to dehydration. Low oral intake. Denies pain. Admits to dark yellow urine. Discussed with patient the need to drink more water. Plan -No IV fluids at this time. Will do trail or oral intake. -If not improving tomorrow, will start fluids. (4) DVT prophylaxis Current Visit: Yes Status: Acute Assessment and plan: -On heparin drip (5) Diabetes Current Visit: Yes Status: Chronic Assessment and plan: -Glucose elevated. On insulin. 18 units of Levemir added on 10/02 Plan -Continue diabetic diet -Reassess and make adjustments tomorrow. Qualifiers: Diabetes mellitus type: other specified (including MARLENA) Diabetes mellitus complication status: with unspecified complications Diabetes mellitus snf insulin use: unspecified snf insulin use status Qualified Code(s): E13.8 - Other specified diabetes mellitus with unspecified complications - Subjective Interval history: 81-year-old male has a history of diabetes, A. fib (on Coumadin), hypertension, see CKD stage III, PVD (femoro-femoral bypass in 1997), L lung mass of unknown etiology, Admitted for ischemic stroke. Today, patient is resting comfortably in bed. Denies headache, blurry vision, weakness, dizziness, chest pain, shortness of breath. Admits to some mild slurred speech and trouble remembering numbers, otherwise he is back to baseline and completely asymptomatic. is present at bedside. Discussed the future care the patient and details of the echo. - Constitutional Vitals: Temp Pulse Resp BP Pulse Ox 97.9 F 85 16 111/69 96 10/02/16 06:55 10/02/16 06:55 10/02/16 06:55 10/02/16 06:55 10/02/16 06:55 General appearance: Present: A&O X 3, pleasant, no acute distress - Head Head exam: Present: atraumatic, normocephalic - Eye Eye exam: Present: PERRL, conjuntiva pink, sclera anicteric Pupils: Present: PERRL - Neck Neck exam general surgery: Present: supple, trachea midline. Absent: lymphadenopathy - Respiratory Respiratory exam: Present: CTAB. Absent: accessory muscle use, rales, rhonchi, wheezes - Cardiovascular Cardiovascular exam: Present: irregular rhythm, +S2, systolic murmur - GI/Abdominal GI/Abdominal exam: Present: normal bowel sounds, soft, no peritoneal signs. Absent: distended, tenderness - Extremities Exam Extremities exam: Present: warm, radial pulses palpable and symetrical. Absent : calf tenderness, cyanotic, pedal edema - Neurological Exam Neurological exam: Present: CN II-XII intact, oriented X3, no focal deficits. Absent: pronater drift, facial droop, speech deficit - Expanded Neurological Exam Neurological exam expanded: Present: memory loss-recent event, memory loss- remote event (remembering numbers) Patient oriented to: Present: person, place, time Speech: Present: expressive aphasia Cranial Nerves: EOM's intact PM: Normal, nystagmus PM: Normal, tongue deviation PM: Normal Ataxia: Absent: yes Upper motor neuron: Babinski sign: Normal, Brady neglect: Normal, pronator drift : Normal, sensory extinction: Normal Coma Scale Eye Opening: Spontaneous Coma Scale Motor Response: Obeys Commands Coma Scale Verbal Response: Oriented Coma Scale Total: 15 - Skin Skin exam: Present: dry, intact Internal Medicine: Result - Labs CBC & Chem 7: 10/02/16 05:25 10/02/16 05:25 Labs: Short CBC 10/01/16 10/02/16 Range/Units 22:47 05:25 WBC 8.9 8.3 (4.3-11.1) K/mcL Hgb 16.6 14.5 D (12.9-16.9) g/dL Hct 50.3 H 44.0 (37.5-50.1) % Plt Count 172 157 (140-400) K/mcL Neutrophils # 6.0 5.5 (1.6-8.9) K/mcL BMP 10/01/16 10/02/16 22:47 05:25 Sodium 138 138 Potassium 4.0 4.2 Chloride 105 106 Carbon Dioxide 20 22 BUN 24 26 Creatinine 1.43 H 1.69 H Glucose 142 H 319 H Calcium 10.5 9.8 - ABG Interpretation ABG results: PT/INR, D-dimer PT 20.4 Seconds (9.4-12.1) H 10/02/16 05:25 - VTE Reasons for not Prescribing Prophylaxis: Not indicated-Anticoagulated or INR therapeutic Consult Discharge Plan - Plan [facility]errals: [facility] [Primary Care Provider] - <Behzad Anderson - Last Filed: 10/02/16 18:08> Date of Encounter: 10/02/16 - Constitutional Vitals: Temp Pulse Resp BP Pulse Ox 97.5 F L 87 20 117/66 96 10/02/16 15:07 10/02/16 15:30 10/02/16 15:30 10/02/16 15:30 10/02/16 15:07 Internal Medicine: Result - Labs CBC & Chem 7: 10/02/16 05:25 10/02/16 05:25 Labs: Short CBC 10/01/16 10/02/16 Range/Units 22:47 05:25 WBC 8.9 8.3 (4.3-11.1) K/mcL Hgb 16.6 14.5 D (12.9-16.9) g/dL Hct 50.3 H 44.0 (37.5-50.1) % Plt Count 172 157 (140-400) K/mcL Neutrophils # 6.0 5.5 (1.6-8.9) K/mcL BMP 10/01/16 10/02/16 22:47 05:25 Sodium 138 138 Potassium 4.0 4.2 Chloride 105 106 Carbon Dioxide 20 22 BUN 24 26 Creatinine 1.43 H 1.69 H Glucose 142 H 319 H Calcium 10.5 9.8 - ABG Interpretation ABG results: PT/INR, D-dimer PT 20.4 Seconds (9.4-12.1) H 10/02/16 05:25 - Attending Attestation I examined this patient and my medical decision-making was reviewed with the ENGINE MAINTENANCE MECHANIC/PA/Advanced Practice Nurse/Resident Physician. I agree with the documented findings, disposition and treatment plan as described except to the extent set forth below. will follow neurology recommendations.
--- NOTE | 2016-10-02 10:33 | Electrocardiograph Report ---
[address] [address] Test Date: 2016-10-01 Pat Name: Stanton Márquez Department: 105 Room: 2NE29 Gender: M Aluminum Pourer: : 1935 Requested By: Kat Ham Order Number: [id number] Reading MD: Abad Logan MD Measurements Intervals [place] Rate: 90 P: AL: 0 QRS: 14 QRSD: 88 T: 65 QT: 332 QTc: 380 Interpretive Statements ATRIAL FIBRILLATION Electronically Signed On 10-02-2016 10:31:59 EST by Abad Logan MD
[2016-10-02] MEDS ORDERED: *HR* Heparin 5,000 UNIT/ML VIAL IVP PRN ×2 (11:11)
[2016-10-02] MEDS: Heparin 25,000 UNIT/500 ML D5W 25,000 UNIT/500 ML MLS IVC SCH (12:00)
[2016-10-02] MEDS: Aspirin 81 MG TAB.CHEW PO SCH (12:08)
[2016-10-02] MEDS: Insulin LISPRO 300 UNITS/3 ML VIAL SQ SCH ×4 (12:10→23:09)
--- NOTE | 2016-10-02 14:56 | ECHO - Doppler Report ---
Echo with Saline Contrast Name: Stanton Márquez Date of Study: 10/02/2016 Date: 1935 Ht: 71.0 in Medical Record#: [id number] Age: 81 Wt: 200.0 lb Gender: Male BSA: 2.11 Order #: [id number] Location: [facility] Room #: 2NE29 Reading Physician: Jon Acosta DO, FLORENTIN RUBY FASNC Volunteer Assistant: Laron Hi RDCS Ordering Physician: Dunacn Kumar DO Primary Physician: [facility] Indications: Cerebrovascular Accident Impressions: LVEF 55-60%. Normal LV chamber size, wall thickness and function. Indeterminate diastolic function. Normal right ventricular structure and function. No evidence of PFO with agitated saline contrast. No evidence of pulmonary hypertension. No significant valvular dysfunction. Left Ventricular Wall Motion: Rest Echo Findings All wall segments showed normal motion. Findings: Study Quality * Technically adequate exam. ECG Findings * Atrial fibrillation. Left Ventricle * LVEF 55-60%. * Normal LV chamber size, wall thickness and function. * Indeterminate diastolic function. Right Ventricle * Normal right ventricular structure and function. Left Atrium * Moderately dilated left atrium. Right Atrium * Mildly dilated right atrium. Interatrial Septum * No evidence of PFO with agitated saline contrast. Aortic Valve * Trileaflet aortic valve. * Mildly sclerotic aortic valve leaflets. * No aortic regurgitation. * No aortic stenosis. Mitral Valve * Normal mitral valve structure and function. * No mitral regurgitation. * No mitral stenosis. Tricuspid Valve * Normal tricuspid valve structure and function. * Trace tricuspid regurgitation. * No evidence of pulmonary hypertension. Pulmonic Valve * Normal pulmonic valve structure and function. * No pulmonic regurgitation. Aorta * Normally sized aortic root. Pericardium * The pericardium appears normal. IVC * Normal IVC dimensions and inspiratory collapse. Pulmonary Artery * Normal visualized portions of the main pulmonary artery. History Diabetes Family History of CAD Contrast: Agitated saline 20 ml. Measurements: BP: 115/ 80 2D Normal Values RVIDd: 3.07 cm <2.7 cm IVSd: .92 cm 0.6 - 1.0 cm LVIDd: 3.61 cm 3.7 - 5.6 cm LVPWd: 1.16 cm 0.6 - 1.1 cm LVIDs: 2.37 cm 1.5 - 3.6 cm AO: 2.50 cm < 4.0 cm LA: 4.20 cm 2.0 - 4.0cm %FS: 34.30 cm >25 % LA volume: 63 Mitral Valve Peak E:1.10 m/sec Peak E' Lat Todd:12.3 cm/s Peak E' Med Todd:10.1 cm/s E/E' Lat Ratio:8.9 E/E' Med Ratio:10.9 Tricuspid Valve TV Regurg Peak Grad: 16.00mmHg TV Regurg Peak Todd: 1.98m/sec Updated by Jon Acosta DO, FLORI, FLORENTIN, YOANNA on 10/02/2016 2:51:32 PM electronically signed on 10/02/2016 2:51:56 PM with status of Final Wall Motion [place]an[place]ra: 1=Normal, 2=Hypokinesis, 3=Akinesis, 4=Dyskinesis, 5=Aneurysmal, 6=Hyperkinetic, X=Not Visualized (Blank)=Missing
[2016-10-02] MEDS ORDERED: Warfarin perPT PO PRN (18:00)
[2016-10-02 19:09] LABS: Activated Partial Thrombo Time 151.7 Seconds (26.0-36.0)
[2016-10-02 19:29] LABS: Heparin anti-factor XA UFH 0.89 IU/mL (0.30-0.70)
[2016-10-02] MEDS: Insulin DETEMIR 100 UNIT/ML X5UNITS SQ SCH (23:09)
[2016-10-03 04:56] LABS: Basophils # 0.1 K/mcL (0.0-0.2); Basophils % 0.6 %; Eosinophils # 0.2 K/mcL (0.0-0.6); Eosinophils % 2.2 %; Hematocrit 45.8 % (37.5-50.1); Immature Granulocytes % 0.4 % (0-4); Lymphocytes # 1.6 K/mcL (0.6-4.6); Lymphocytes % 19.1 %; Mean Corpuscular HGB Conc 32.8 g/dL (31.6-35.5); Mean Corpuscular Hemoglobin 27.8 pg (28.0-33.3); Mean Corpuscular Volume 84.8 fL (83.0-100.0); Mean Platelet Volume 12.9 fL (9.4-12.4); Monocytes # 0.8 K/mcL (0.0-1.3); Monocytes % 10.1 %; Neutrophils # 5.5 K/mcL (1.6-8.9); Platelet Count 160 K/mcL (140-400); Red Cell Distribution Width 15.1 % (11.5-14.5); Segmented Neutrophils % 67.6 %
[2016-10-03 05:00] LABS: INR 2.1; Prothrombin Time 23.2 Seconds (9.4-12.1)
[2016-10-03 05:03] LABS: Activated Partial Thrombo Time 93.7 Seconds (26.0-36.0)
[2016-10-03 05:08] LABS: BUN/Creatinine Ratio 19 (6-26); Blood Urea Nitrogen 25 mg/dL (8-26); Calcium 9.9 mg/dL (8.6-10.8); Carbon Dioxide 23 mEq/L (19-29); Chloride 106 mEq/L (98-109); Glucose 207 mg/dL (70-99); Osmolality,Calculated 298 (280-300); Sodium 139 mEq/L (136-145); eGFR For African Americans > 60 (> 60); eGFR For Non-African Americans 51 (> 60)
[2016-10-03] MEDS ORDERED: Heparin 25,000 UNIT/500 ML D5W 25,000 UNIT/500 ML MLS IVC SCH (08:15)
[2016-10-03] MEDS: Aspirin 81 MG TAB.CHEW PO SCH (09:28)
[2016-10-03] MEDS: Insulin LISPRO 300 UNITS/3 ML VIAL SQ SCH ×4 (09:29→20:33)
[2016-10-03] MEDS: Heparin 25,000 UNIT/500 ML D5W 25,000 UNIT/500 ML MLS IVC SCH (09:30)
--- NOTE | 2016-10-03 09:54 | Internal Med Progress Note ---
Date of Encounter: 10/03/16 - Assessment and plan (1) Cerebrovascular accident Current Visit: Yes Status: Acute Qualifiers: CVA mechanism: unspecified Qualified Code(s): I63.9 - Cerebral infarction, unspecified (2) Afib Current Visit: Yes Status: Acute Qualifiers: Atrial fibrillation type: chronic Qualified Code(s): I48.2 - Chronic atrial fibrillation (3) CKD (chronic kidney disease), stage III Current Visit: Yes Status: Acute (4) DVT prophylaxis Current Visit: Yes Status: Acute (5) Diabetes Current Visit: Yes Status: Chronic Qualifiers: Diabetes mellitus type: other specified (including MARLENA) Diabetes mellitus complication status: with unspecified complications Diabetes mellitus care home insulin use: unspecified care home insulin use status Qualified Code(s): E13.8 - Other specified diabetes mellitus with unspecified complications - Subjective Interval history: 81-year-old male has a history of diabetes, A. fib (on Coumadin), hypertension, see CKD stage III, PVD (femoro-femoral bypass in 1997), L lung mass of unknown etiology, Admitted for ischemic stroke. Today, patient is resting comfortably in bed. Denies headache, blurry vision, weakness, dizziness, chest pain, shortness of breath. Admits to some mild slurred speech and trouble remembering numbers, otherwise he is back to baseline and completely asymptomatic. is present at bedside. Discussed the future care the patient and details of the echo. - Constitutional Vitals: Temp Pulse Resp BP Pulse Ox 97.6 F 83 16 106/77 97 10/03/16 07:00 10/03/16 07:30 10/03/16 07:30 10/03/16 07:30 10/03/16 07:00 General appearance: Present: A&O X 3, pleasant, no acute distress Internal Medicine: Result - Labs CBC & Chem 7: 10/03/16 04:00 10/03/16 04:00 Labs: Short CBC 10/03/16 Range/Units 04:00 WBC 8.2 (4.3-11.1) K/mcL Hgb 15.0 (12.9-16.9) g/dL Hct 45.8 (37.5-50.1) % Plt Count 160 (140-400) K/mcL Neutrophils # 5.5 (1.6-8.9) K/mcL BMP 10/03/16 04:00 Sodium 139 Potassium 4.0 Chloride 106 Carbon Dioxide 23 BUN 25 Creatinine 1.35 H Glucose 207 H Calcium 9.9 - ABG Interpretation ABG results: PT/INR, D-dimer PT 23.2 Seconds (9.4-12.1) H 10/03/16 04:00 - VTE Reasons for not Prescribing Prophylaxis: Not indicated-Anticoagulated or INR therapeutic Consult Discharge Plan - Plan [facility]errals: [facility] [Primary Care Provider] -
--- NOTE | 2016-10-03 13:04 | Neurology Progress Note ---
<Chidi Brown - Last Filed: 10/03/16 12:59> Date of Encounter: 10/03/16 Time of Encounter: 10:00 Assessment and Plan (1) Cerebrovascular accident Current Visit: Yes Status: Acute - resolved, patient's symptoms are gone and he is essentially back to baseline - Therapeutic level with INR, continue Coumadin - We added Aspirin, continue - Spent time discussing with patient and about the signs/symptoms of stroke and encourage them to seek medical care early - Stable for discharge from neurological standpoint and we are only awaiting the results from his carotid US - If carotid US is negative, ok to discharge today - Further recommendations pending attending evaluation Qualifiers: CVA mechanism: unspecified Qualified Code(s): I63.9 - Cerebral infarction, unspecified Subjective Principal diagnosis: cva Interval history: No acute events overnight. Patients symptoms have resolved completely. Objective - Constitutional Vitals: Temp Pulse Resp BP Pulse Ox 97.6 F 83 16 106/77 97 10/03/16 07:00 10/03/16 07:30 10/03/16 07:30 10/03/16 07:30 10/03/16 07:00 General appearance: Present: cooperative, A&O X 3, no acute distress, answers questions appropriately - Neurological Exam Motor Examination: Present: full strength in all major muscle groups Motor examination - right side: 5/5: deltoids, biceps, triceps, wrist flexion, wrist extension, research chemical engineer, hip flexors, tibialis Anterior, quadriceps, toe extension (EHL), plantarflexion Motor examination - left side: 5/5: deltoids, biceps, triceps, wrist flexion, wrist extension, hip flexors, research chemical engineer, quadriceps, tibialis Anterior, toe extension (EHL), plantarflexion Sensation intact: Present: intact Reflexes: Patella: 2+ Mental Status Examination: Present: awake, alert, oriented to person, oriented to place, oriented to time, follows commands appropriately, answers questions appropriately, no agnosia, no aphasia, no aproxia, makes eye contact Cranial nerve examination: Present: PERRL, EOMI, visual willson intact, sensory to face intact, mastication intact, no facial asymmetry is present, hearing is intact symmetrically, flexes SCM and trapezius muscles symmetrically with full power, no atrophy or facial fasiculations present Cerebellar examination: Present: performs finger to nose and heel to baumann symmetrically without ataxia, no truncal ataxia, no difficulty with rapid alternating movements - VTE Reasons for not Prescribing Prophylaxis: Not indicated-Anticoagulated or INR therapeutic Results - Laboratory Findings CBC and BMP: 10/03/16 04:00 10/03/16 04:00 Abnormal lab findings: Abnormal lab results MCH 27.8 pg (28.0-33.3) L 10/03/16 04:00 RDW 15.1 % (11.5-14.5) H 10/03/16 04:00 MPV 12.9 fL (9.4-12.4) H 10/03/16 04:00 PT 23.2 Seconds (9.4-12.1) H 10/03/16 04:00 APTT 103.1 Seconds (26.0-36.0) H 10/03/16 11:55 Heparin Anti-Xa, Unfract 0.89 IU/mL (0.30-0.70) H 10/02/16 18:16 Creatinine 1.35 mg/dL (0.72-1.25) H 10/03/16 04:00 Est GFR (Non-Af Amer) 51 (> 60) L 10/03/16 04:00 Glucose 207 mg/dL (70-99) H 10/03/16 04:00 POC Glucose 146 (58-89) H 10/01/16 18:47 Triglycerides 214 mg/dL (< 150) H 10/02/16 05:25 VLDL Cholesterol, Calc 43 mg/dL (< 31) H 10/02/16 05:25 HDL Cholesterol 29 mg/dL (40-59) L 10/02/16 05:25 Consult Discharge Plan - Plan Instructions: Aspirin (By mouth), Atrial Fibrillation (DC), Carotid Artery Disease (DC), Carotid Artery Disease (GEN), Diabetes Mellitus Type 2 in Adults ( DC), Ischemic Stroke (DC), Ischemic Stroke (GEN), Chronic Hypertension (DC), Self Care Measures After a Stroke (DC), Self Care Measures After a Stroke (GEN) Additional Instructions: Follow-up appointments: If there is not an appointment listed below, please call your physician and schedule a follow-up appointment. If you have congestive heart failure and your symptoms return, make an appointment with your physician. Symptoms: If your condition changes or you experience any of the following symptoms, notify your physician immediately: Unusual or worsening pain, fever, persistent nausea and vomiting, bleeding, increase in swelling (especially in your legs), sudden weight gain, extreme dizziness, chest pain, increased drainage or redness from a wound or incision. Go to the emergency department if you experience a problem with breathing. Weights: If you have a history of swelling or shortness of breath, weigh yourself daily and notify your physician if you have a weight gain of two or more pounds in one day or 5 or more pounds in a week. If you experience any of the warning signs for stroke: Sudden numbness or weakness of the face, arm or leg; especially on one side of the body, sudden confusion, trouble speaking or understanding, sudden trouble seeing in one or both eyes, sudden trouble walking, dizziness, loss of balance or coordination, sudden sever headache with no cause; Call 911 or go to the emergency room. Stroke is a medical emergency. Some risk factors for stroke: Age, cigarette smoking, diabetes, excessive alcohol consumption, family history , high blood pressure, overweight, physical inactivity, prior stroke, heart attack, diagnosis of carotid artery stenosis or other artery disease. If you smoke, STOP: Smoking or tobacco use significantly increases your risk of heart and lung disease. Your chance of disease greatly increases if you continue to smoke. For more information, call the [place] tobacco quit line for smoking cessation 3-372 QUIT-NOW ( ) Referrals: [facility],PCP [Primary Care Provider] - 10/15/16 1:00 pm (-TIA discharged on 10/03/16. Only residual deficit is memory ) Prescriptions: Aspirin 81 mg PO DAILY #30 tab.chew <Mary Jean I - Last Filed: 10/03/16 16:28> Date of Encounter: 10/03/16 Assessment and Plan (1) Cerebrovascular accident Current Visit: Yes Status: Acute Patient seen and examined with Dr. gaines noted assessment Carotid results are still pending if negative he could be discharged continue on antiplatelet therapy with aspirin as well as Coumadin recommend monitoring as per primary care. Call if needed any concern particularly about the results of her carotid Mary Jean MD Qualifiers: CVA mechanism: unspecified Qualified Code(s): I63.9 - Cerebral infarction, unspecified Objective - Constitutional Vitals: Temp Pulse Resp BP Pulse Ox 98.2 F 107 16 125/76 96 10/03/16 15:00 10/03/16 15:00 10/03/16 15:00 10/03/16 15:00 10/03/16 15:00 Results - Laboratory Findings CBC and BMP: 10/03/16 04:00 10/03/16 04:00 Abnormal lab findings: Abnormal lab results MCH 27.8 pg (28.0-33.3) L 10/03/16 04:00 RDW 15.1 % (11.5-14.5) H 10/03/16 04:00 MPV 12.9 fL (9.4-12.4) H 10/03/16 04:00 PT 23.2 Seconds (9.4-12.1) H 10/03/16 04:00 APTT 103.1 Seconds (26.0-36.0) H 10/03/16 11:55 Heparin Anti-Xa, Unfract 0.89 IU/mL (0.30-0.70) H 10/02/16 18:16 Creatinine 1.35 mg/dL (0.72-1.25) H 10/03/16 04:00 Est GFR (Non-Af Amer) 51 (> 60) L 10/03/16 04:00 Glucose 207 mg/dL (70-99) H 10/03/16 04:00 POC Glucose 146 (58-89) H 10/01/16 18:47 Triglycerides 214 mg/dL (< 150) H 10/02/16 05:25 VLDL Cholesterol, Calc 43 mg/dL (< 31) H 10/02/16 05:25 HDL Cholesterol 29 mg/dL (40-59) L 10/02/16 05:25
--- NOTE | 2016-10-03 13:56 | Discharge Summary ---
<EllaJassi - Last Filed: 10/04/16 14:42> Date of Encounter: 10/04/16 Time of Encounter: 13:55 - Discharge Diagnosis (1) Cerebrovascular accident Status: Acute Comments: -Patient DDX includes carotid artery stenosis. Unable to add becasue of [employer] problem. Please interval history for details Qualifiers: CVA mechanism: unspecified Qualified Code(s): I63.9 - Cerebral infarction, unspecified (2) Afib Status: Acute Qualifiers: Atrial fibrillation type: chronic Qualified Code(s): I48.2 - Chronic atrial fibrillation (3) CKD (chronic kidney disease), stage III Status: Acute (4) DVT prophylaxis Status: Acute (5) Diabetes Status: Chronic Qualifiers: Diabetes mellitus type: other specified (including MARLENA) Diabetes mellitus complication status: with unspecified complications Diabetes mellitus terminal operator insulin use: unspecified shelter insulin use status Qualified Code(s): E13.8 - Other specified diabetes mellitus with unspecified complications - Discharge Medications Prescriptions: Aspirin 81 mg PO DAILY #30 tab.chew Home Medications: Hydrochlorothiazide 25 mg PO DAILY 10/01/16 [History] Insulin ASPART [Novolog Flexpen] 4 unit SQ BID 10/01/16 [History] Insulin ASPART [Novolog Flexpen] 8 unit SQ QPM 10/01/16 [History] Insulin Glargine [Lantus] 36 unit SQ HS 10/01/16 [History] Losartan [Cozaar] 25 mg PO DAILY 10/01/16 [History] Metformin HCl [Metformin HCl ER] 1,000 mg PO QPM 10/01/16 [History] Metoprolol [Lopressor] 12.5 mg PO BID 10/01/16 [History] Pantoprazole Sodium [Protonix] 20 mg PO BID 10/01/16 [History] Simvastatin [Zocor] 80 mg PO QPM 10/01/16 [History] Warfarin [Coumadin] 4 mg PO 1800 10/01/16 [History] Aspirin 81 mg PO DAILY #30 tab.chew 10/03/16 [Rx] Allergies/Adverse Reactions: Allergies No Known Allergies Allergy (Verified 10/01/16 20:26) Procedures/tests Complete & Pending: Procedures Performed prior 72 hours Category Date Time Status EV carotid duplex imaging BI Stat Y 10/02/16 23:20 Completed EV echocardiogram Routine Y 10/02/16 23:22 Completed Date of admission: 10/01/16 21:22 [facility] care physician: [facility] Consults: 10/01/16 21:58 Consult to Neurology [CONS] Routine Consulting Provider: [facility] Reason for Consult: Ed staff already spoke to Dr. Jean. Call Completed: Yes 10/01/16 22:29 Consult to Occupational Therapy [CONS] Stat Comment: Evaluate, develop and implement POC Consult to Physical Therapy [CONS] Stat Comment: Evaluate, develop and implement POC 10/01/16 23:23 Consult to Speech Therapy [CONS] Stat Comment: Evaluate, develop and implement POC Reason for Consult: stroke Call Completed: No 10/01/16 23:25 Consult to Hospitality Host [CONS] Routine Comment: - Patient Status Disposition: Home, Self-Care Condition: Good Functional capacity at discharge: independent ambulation Overall status at discharge: patient is progressing back to baseline - Discharge Instructions Instructions: Aspirin (By mouth), Atrial Fibrillation (DC), Carotid Artery Disease (DC), Carotid Artery Disease (GEN), Diabetes Mellitus Type 2 in Adults ( DC), Ischemic Stroke (DC), Ischemic Stroke (GEN), Chronic Hypertension (DC), Self Care Measures After a Stroke (DC), Self Care Measures After a Stroke (GEN) Follow Up With: Wilton Diaz MD [Partnered Physician] - 10/15/16 10:00 am ( follow-up carotrtery stenosis. 60-79% stenosis on the R, 80-99% n the L. Recent stroke. Discuss Left CEA (6 weeks from hospitalization)) [facility] [Primary Care Provider] - 10/15/16 1:00 pm (-TIA discharged on 10/03/16. Only residual deficit is memory . Carotid artery stenosis. ) Additional Instructions: Follow-up appointments: If there is not an appointment listed below, please call your physician and schedule a follow-up appointment. If you have congestive heart failure and your symptoms return, make an appointment with your physician. Symptoms: If your condition changes or you experience any of the following symptoms, notify your physician immediately: Unusual or worsening pain, fever, persistent nausea and vomiting, bleeding, increase in swelling (especially in your legs), sudden weight gain, extreme dizziness, chest pain, increased drainage or redness from a wound or incision. Go to the emergency department if you experience a problem with breathing. Weights: If you have a history of swelling or shortness of breath, weigh yourself daily and notify your physician if you have a weight gain of two or more pounds in one day or 5 or more pounds in a week. If you experience any of the warning signs for stroke: Sudden numbness or weakness of the face, arm or leg; especially on one side of the body, sudden confusion, trouble speaking or understanding, sudden trouble seeing in one or both eyes, sudden trouble walking, dizziness, loss of balance or coordination, sudden sever headache with no cause; Call 911 or go to the emergency room. Stroke is a medical emergency. Some risk factors for stroke: Age, cigarette smoking, diabetes, excessive alcohol consumption, family history , high blood pressure, overweight, physical inactivity, prior stroke, heart attack, diagnosis of carotid artery stenosis or other artery disease. If you smoke, STOP: Smoking or tobacco use significantly increases your risk of heart and lung disease. Your chance of disease greatly increases if you continue to smoke. For more information, call the [employer] quit line for smoking cessation 1-614- QUIT-NOW ( ) - Diet and Activity Activity: increase activity as tolerated Diet: advance to your usual diet Hospital course: 81-year-old male admitted on 10/02/16 for stroke. MRI showed acute microinfarctions in the left frontal lobe, parietal lobe, and left thalamus along with chronic lacunar infarcts. Echo revealed an ejection fraction of 50- 60%, mild stenosis and regurgitation. Otherwise normal cardiac exam. INR sub- therapeutic at less than 2.0. Patient continued on home warfarin with heparin added to bring INR therapeutic. On 10/03/16 INR 2.1. Patient was followed closely by neurology. Patient is resting complaint bed. Shows no focal neurological deficits. States that he is having trouble with his memory, particularly remembering numbers however that seems to be improving as well. We will discharge patient on aspirin and home medication. Discussed with patient at bedside, Patient has close follow-up to monitor his Coumadin and INR levels. Carotid ultrasound shows carotid stenosis 80-99% on L and 60-79% on Right. patient was evaluated by vascular surgery.patient will follow up with Dr. Diaz on October 15 at 10:10 AM. Appointment has been made. patient is physically completely asymptomatic and there are no focal neurological deficits. Patient still is having problems remembering numbers However this has improved. patient's is at bedside. Patient would like to go home and feels comfortable doing so. Does not think that he needs home health services. Is ambulatory. - Time Spent with Patient Total time spent providing and/or coordinating discharge services: Greater than 30 minutes - Constitutional Vitals: Temp Pulse Resp BP Pulse Ox 98.4 F 97 12 115/74 97 10/03/16 13:18 10/03/16 13:18 10/03/16 13:18 10/03/16 13:18 10/03/16 13:18 General appearance: Present: A&O X 3, pleasant, no acute distress - Head Head exam: Present: atraumatic, normocephalic - Eye Eye exam: Present: PERRL, conjuntiva pink, sclera anicteric Pupils: Present: PERRL - Neck Neck exam general surgery: Present: supple, trachea midline. Absent: lymphadenopathy Additional comments: Carotid bruit - Respiratory Respiratory exam: Present: CTAB. Absent: accessory muscle use, rales, rhonchi, wheezes - Cardiovascular Cardiovascular exam: Present: irregular rhythm (Rate less than 90. Controlled) , systolic murmur. Absent: diastolic murmur, gallop, rubs - Neurological Exam Neurological exam: Present: CN II-XII intact, oriented X3, no focal deficits. Absent: pronater drift, facial droop, speech deficit - Skin Skin exam: Present: dry, intact - VTE Reasons for not Prescribing Prophylaxis: Not indicated-Anticoagulated or INR therapeutic <Behzad Anderson P - Last Filed: 10/04/16 18:41> Date of Encounter: 10/04/16 Procedures/tests Complete & Pending: Procedures Performed prior 72 hours Category Date Time Status EV carotid duplex imaging BI Stat Y 10/02/16 23:20 Completed EV echocardiogram Routine Y 10/02/16 23:22 Completed Date of admission: 10/01/16 21:22 Primary care physician: [facility]CP [facility] Consults: 10/01/16 21:58 Consult to Neurology [CONS] Routine Consulting Provider: [facility] Reason for Consult: Ed staff already spoke to Dr. Jean. Call Completed: Yes 10/01/16 22:29 Consult to Occupational Therapy [CONS] Stat Comment: Evaluate, develop and implement POC Consult to Physical Therapy [CONS] Stat Comment: Evaluate, develop and implement POC 10/01/16 23:23 Consult to Speech Therapy [CONS] Stat Comment: Evaluate, develop and implement POC Reason for Consult: stroke Call Completed: No 10/01/16 23:25 Consult to Hospitality Host [CONS] Routine Comment: 10/04/16 14:19 Consult to Surgery [CONS] Routine Consulting Provider: Jassi Jaramillo Reason for Consult: Carotid Artery Stenosis. Already spoke with Dr. Diaz. Will be discharged with followup in 6weeks. Call Completed: Yes Hospital course: Mr. Márquez is a 81 year old male - Time Spent with Patient Total time spent providing and/or coordinating discharge services: - Constitutional Vitals: Temp Pulse Resp BP Pulse Ox 97.9 F 83 20 130/97 98 10/04/16 11:20 10/04/16 11:20 10/04/16 11:20 10/04/16 11:20 10/04/16 11:20 - Attending Attestation I examined this patient and my medical decision-making was reviewed with the METAL WIRE COATING OPERATOR/PA/Advanced Practice Nurse/Resident Physician. I agree with the documented findings, disposition and treatment plan as described except to the extent set forth below.
--- NOTE | 2016-10-03 15:09 | Event Note ---
<Jassi Jaramillo - Last Filed: 10/03/16 16:28> Date of Encounter: 10/03/16 Time of Encounter: 15:08 Plan -Patient will stay overnight and vascular surgery will see patient in the morning. -Because of recent stroke, 6 weeks until carotid endarterectomy Pending carotid ultrasound for discharge. Patient did have carotid ultrasound April 2016. Which showed less than 70% stenosis. Repeat carotid ultrasound shows stenosis of 80%. Spoke with vascular surgery, consulted, and will see the patient tomorrow for further workup. We will get social work. Patient and have questions concerning [facility] and payment. <Behzad Anderson - Last Filed: 10/03/16 18:12> Date of Encounter: 10/03/16 I examined this patient and my medical decision-making was reviewed with the ROAD ENGINEER FREIGHT/PA/Advanced Practice Nurse/Resident Physician. I agree with the documented findings, disposition and treatment plan as described except to the extent set forth below. spoke with vascular surgery will evaluate tomorrow will follow recommendations
--- NOTE | 2016-10-03 16:26 | Carotid Imaging Report ---
Carotid Duplex Patient Name:Stanton Márquez Order Number:[id number] Procedure Date:10/02/2016 Date:1935ge:81 yrs Gender:Male Location:[facility] Room #: 2NE29 [employer] Facilities Operator:Laron Hi RDCS Referring MD:Duncan Kumar DO oncology social worker:[facility] Reading MD:Wilton Diaz MD Primary Indications:CVA Risk Factors Yes/No Diabetes Yes Smoker Previous Yes Hx of TIA Yes Hx of CVA Yes Impressions: Findings: Right proximal ICA has a severe, 60-79% stenosis. Findings: Left proximal ICA has a critical, 80-99% stenosis. Recommendations: Futher evaluation is recommended. After imaging the patient returned to their room. Findings Carotid Duplex: Right: There is nonstenotic plaque in the right proximal common carotid artery with a PSV of 75 cm/s and a EDV of 12 cm/s. There is smooth heterogeneous plaque. There is nonstenotic plaque in the right mid common carotid artery with a PSV of 68 cm/s and a EDV of 16 cm/s. There is smooth, heterogeneous calcified plaque. There is nonstenotic plaque in the right distal common carotid artery with a PSV of 71 cm/s and a EDV of 17 cm/s. There is smooth heterogeneous plaque. There is nonstenotic plaque in the right bifurcation with a PSV of 53 cm/s and a EDV of 11 cm/s. There is irregular, heterogeneous calcified plaque. There is 60-79% stenosis in the right proximal internal carotid artery with a PSV of 146 cm/s and a EDV of 51 cm/s. There is irregular, heterogeneous calcified plaque. There is 60-79% stenosis in the right mid internal carotid artery with a PSV of 183 cm/s and a EDV of 40 cm/s. There is smooth heterogeneous plaque. There is 60-79% stenosis in the right distal internal carotid artery with a PSV of 143 cm/s and a EDV of 42 cm/s. There is nonstenotic plaque in the right eca with a PSV of 180 cm/s and a EDV of 14 cm/s. The right vertebral artery has a PSV of 65 cm/s and a EDV of 13 cm/s. Left: The left proximal common carotid artery has a PSV of 144 cm/s and a EDV of 15 cm/s. There is nonstenotic plaque in the left mid common carotid artery with a PSV of 97 cm/s and a EDV of 17 cm/s. There is smooth heterogeneous plaque. There is nonstenotic plaque in the left distal common carotid artery with a PSV of 85 cm/s and a EDV of 17 cm/s. There is smooth heterogeneous plaque. There is 60-79% stenosis in the left bifurcation with a PSV of 199 cm/s and a EDV of 46 cm/s. There is smooth, heterogeneous calcified plaque. There is 80-99% stenosis in the left proximal internal carotid artery with a PSV of 347 cm/s and a EDV of 79 cm/s. There is smooth, heterogeneous calcified plaque. The left mid internal carotid artery has turbulent flow without plaque with a PSV of 81 cm/s and a EDV of 24 cm/s. The left distal internal carotid artery has a PSV of 73 cm/s and a EDV of 20 cm/s. There is nonstenotic plaque in the left eca with a PSV of 172 cm/s and a EDV of 15 cm/s. The left vertebral artery has a PSV of 32 cm/s and a EDV of 9 cm/s. Does not meet all criteria for 80-99% of left. High End 60-79%. Prior Study: No prior study available for comparison. Carotid Results Right PSV EDV Assessment Proximal CCA 75 12 Non Stenotic Plaque Mid CCA 68 16 Non Stenotic Plaque Distal CCA 71 17 Non Stenotic Plaque Bifurcation 53 11 Non Stenotic Plaque Proximal ICA 146 51 60-79% stenosis Mid ICA 183 40 60-79% stenosis Distal ICA 143 42 60-79% stenosis ECA 180 14 Non Stenotic Plaque Vertebral Artery 65 13 Normal Left PSV EDV Assessment Proximal CCA 144 15 Normal Mid CCA 97 17 Non Stenotic Plaque Distal CCA 85 17 Non Stenotic Plaque Bifurcation 199 46 60-79% stenosis Proximal ICA 347 79 80-99% stenosis Mid ICA 81 24 Normal Distal ICA 73 20 Normal ECA 172 15 Non Stenotic Plaque Vertebral Artery 32 9 Normal Ratio's Right ICA/CCA Ratio: 2.69 ICA/CCA Values: 183/68 Left ICA/CCA Ratio: 3.59 ICA/CCA Values: 347/79 Updated by Wilton Diaz MD on 10/03/2016 4:19:58 PM electronically signed on 10/03/2016 4:20:10 PM with status of Final
[2016-10-03] MEDS ORDERED: *HR* Warfarin 4 MG TABLET PO SCH (18:00)
[2016-10-03] MEDS: Insulin DETEMIR 100 UNIT/ML X5UNITS SQ SCH (20:31)
[2016-10-04 05:30] LABS: INR 2.2; Prothrombin Time 24.8 Seconds (9.4-12.1)
[2016-10-04 05:51] LABS: Calcium 9.7 mg/dL (8.6-10.8)
[2016-10-04 05:55] LABS: Potassium 4.2 mEq/L (3.5-4.5)
[2016-10-04 06:06] LABS: Activated Partial Thrombo Time 97.4 Seconds (26.0-36.0)
[2016-10-04] MEDS: Aspirin 81 MG TAB.CHEW PO SCH (08:23)
[2016-10-04] MEDS: Insulin LISPRO 300 UNITS/3 ML VIAL SQ SCH ×2 (08:24→12:18)
[2016-10-04 10:11] LABS: Hemoglobin A1C 8.2 %
--- NOTE | 2016-10-04 10:22 | Internal Med Progress Note ---
<Jassi Jaramillo - Last Filed: 10/04/16 14:31> Date of Encounter: 10/04/16 Time of Encounter: 14:34 - Assessment and plan (1) Cerebrovascular accident Status: Acute Assessment and plan: -MRI shows acute microinfarctions in the left frontal lobe, the parietal lobe, the left thalamus along with chronic lacunar infarcts -Echo shows left ventricular ejection fraction 55-60%, mild stenosis and regurgitation. Otherwise normal exam -Carotid ultrasound pending -Patient's only complaint is some memory deficit, particularly with numbers and trouble finding words. Otherwise feel he is back to baseline. -Slightly sub-therapeutic on is INR -FRANKIE worsening Plan -Per pharmacy recommendation, will start heparin drip and continue warfarin till therapeutic. No lovenox because of renal function. -Neurology on board. Thank you for your recommendations. -Aspirin restarted today -Possible discharge within 2 days pending Renal function, INR/PTT, mental status function. 10/04/16 -Patient discharged today. -He has close followup with his coumadin care. His INR >2.0. Heparin discontinued. Continue the warfarin and aspirin. Qualifiers: CVA mechanism: unspecified Qualified Code(s): I63.9 - Cerebral infarction, unspecified (2) Afib Status: Acute Assessment and plan: -Echo results above -Patient has had known murmur for "years". Currently takes metoprolol for A. fib 12.5mg. denies any chest pain, shortness of breath. Is asymptomatic. With a heart rate in the 70-80's. Rate controlled. No need to make adjustments. Plan -Continue with current therapy. Qualifiers: Atrial fibrillation type: chronic Qualified Code(s): I48.2 - Chronic atrial fibrillation (3) CKD (chronic kidney disease), stage III Status: Acute Assessment and plan: resolved (4) DVT prophylaxis Status: Acute Assessment and plan: - therapeutic (5) Diabetes Status: Chronic Assessment and plan: -Glucose elevated. On insulin. 18 units of Levemir added on 10/02 Plan -Continue diabetic diet -Reassess and make adjustments tomorrow. 10/04/16 - patient being discharged home. -Will not be making any changes. Qualifiers: Diabetes mellitus type: other specified (including MARLENA) Diabetes mellitus complication status: with unspecified complications Diabetes mellitus medical terminologist insulin use: unspecified medical terminologist insulin use status Qualified Code(s): E13.8 - Other specified diabetes mellitus with unspecified complications (6) Carotid stenosis, bilateral Status: Acute Assessment and plan: -carotid ultrasound revealed 80-99% blockage on the left, 60-79% blockage on right -patient evaluated by vascular surgery and neurology. Patient is asymptomatic. Will be discharged home tomorrow -patient appointment made with Dr. Diaz for evaluation. - Subjective Interval history: patient is doing well. still has problems remembering numbers but this seems to be resolving. otherwise patient is completely asymptomatic. Patient seen by vascular and is being discharged home today. - Constitutional Vitals: Temp Pulse Resp BP Pulse Ox 97.6 F 76 16 131/77 95 10/04/16 04:00 10/04/16 07:00 10/04/16 07:00 10/04/16 07:00 10/04/16 07:00 General appearance: Present: A&O X 3, pleasant, no acute distress - Head Head exam: Present: atraumatic, normocephalic - Eye Eye exam: Present: PERRL, conjuntiva pink, sclera anicteric Pupils: Present: PERRL - Neck Neck exam general surgery: Present: supple, trachea midline. Absent: lymphadenopathy - Respiratory Respiratory exam: Present: CTAB. Absent: accessory muscle use, rales, rhonchi, wheezes - Cardiovascular Cardiovascular exam: Present: RRR, systolic murmur. Absent: rubs - GI/Abdominal GI/Abdominal exam: Present: normal bowel sounds, soft, no peritoneal signs. Absent: distended, tenderness - Extremities Exam Extremities exam: Present: warm, radial pulses palpable and symetrical. Absent : calf tenderness, cyanotic, pedal edema - Neurological Exam Neurological exam: Present: CN II-XII intact, oriented X3, no focal deficits. Absent: pronater drift, facial droop, speech deficit - Skin Skin exam: Present: dry, intact Internal Medicine: Result - Labs CBC & Chem 7: 10/03/16 04:00 10/04/16 04:45 Labs: BMP 10/04/16 04:45 Sodium 139 Potassium 4.2 Chloride 107 Carbon Dioxide 21 BUN 25 Creatinine 1.42 H Glucose 217 H Calcium 9.7 - ABG Interpretation ABG results: PT/INR, D-dimer PT 24.8 Seconds (9.4-12.1) H 10/04/16 04:45 - VTE Reasons for not Prescribing Prophylaxis: Not indicated-Anticoagulated or INR therapeutic Consult Discharge Plan - Plan Instructions: Aspirin (By mouth), Atrial Fibrillation (DC), Carotid Artery Disease (DC), Carotid Artery Disease (GEN), Diabetes Mellitus Type 2 in Adults ( DC), Ischemic Stroke (DC), Ischemic Stroke (GEN), Chronic Hypertension (DC), Self Care Measures After a Stroke (DC), Self Care Measures After a Stroke (GEN) Additional Instructions: Follow-up appointments: If there is not an appointment listed below, please call your physician and schedule a follow-up appointment. If you have congestive heart failure and your symptoms return, make an appointment with your physician. Symptoms: If your condition changes or you experience any of the following symptoms, notify your physician immediately: Unusual or worsening pain, fever, persistent nausea and vomiting, bleeding, increase in swelling (especially in your legs), sudden weight gain, extreme dizziness, chest pain, increased drainage or redness from a wound or incision. Go to the emergency department if you experience a problem with breathing. Weights: If you have a history of swelling or shortness of breath, weigh yourself daily and notify your physician if you have a weight gain of two or more pounds in one day or 5 or more pounds in a week. If you experience any of the warning signs for stroke: Sudden numbness or weakness of the face, arm or leg; especially on one side of the body, sudden confusion, trouble speaking or understanding, sudden trouble seeing in one or both eyes, sudden trouble walking, dizziness, loss of balance or coordination, sudden sever headache with no cause; Call 911 or go to the emergency room. Stroke is a medical emergency. Some risk factors for stroke: Age, cigarette smoking, diabetes, excessive alcohol consumption, family history , high blood pressure, overweight, physical inactivity, prior stroke, heart attack, diagnosis of carotid artery stenosis or other artery disease. If you smoke, STOP: Smoking or tobacco use significantly increases your risk of heart and lung disease. Your chance of disease greatly increases if you continue to smoke. For more information, call the [place] tobacco quit line for smoking cessation 9-637- QUIT-NOW ( ) Referrals: Wilton Diaz MD [Partnered Physician] - 10/15/16 10:00 am ( follow-up carotrtery stenosis. 60-79% stenosis on the R, 80-99% n the L. Recent stroke. Discuss Left CEA (6 weeks from hospitalization)) [facility] [Primary Care Provider] - 10/15/16 1:00 pm (-TIA discharged on 10/03/16. Only residual deficit is memory . Carotid artery stenosis. ) Prescriptions: Aspirin 81 mg PO DAILY #30 tab.chew <Behzad Anderson P - Last Filed: 10/04/16 18:42> Date of Encounter: 10/04/16 - Constitutional Vitals: Temp Pulse Resp BP Pulse Ox 97.9 F 83 20 130/97 98 10/04/16 11:20 10/04/16 11:20 10/04/16 11:20 10/04/16 11:20 10/04/16 11:20 Internal Medicine: Result - Labs CBC & Chem 7: 10/03/16 04:00 10/04/16 04:45 Labs: BMP 10/04/16 04:45 Sodium 139 Potassium 4.2 Chloride 107 Carbon Dioxide 21 BUN 25 Creatinine 1.42 H Glucose 217 H Calcium 9.7 - ABG Interpretation ABG results: PT/INR, D-dimer PT 24.8 Seconds (9.4-12.1) H 10/04/16 04:45 - Attending Attestation I examined this patient and my medical decision-making was reviewed with the ACID CONDITIONER/PA/Advanced Practice Nurse/Resident Physician. I agree with the documented findings, disposition and treatment plan as described except to the extent set forth below.
--- NOTE | 2016-10-04 10:34 | Event Note ---
Date of Encounter: 10/04/16 Time of Encounter: 09:30 patient seen and examined this morning. Patient was to be discharged yesterday pending carotid US. The US resulted and showed critical stenosis with 80-99% occlusion on the L and 60-79% on the R. The patient is completely asymptomatic and has no focal neurological deficits. Vascular surgery has been consulted and will see the patient today. Awaiting their recommendations. PLAN: - Will continue current care at this time. - Patient and family updated on the plan and are agreeable. - All questions were answered.
[2016-10-04 11:33] VITALS: BP 130/97
--- NOTE | 2016-10-04 13:59 | General Surgery Consult Note ---
<Parminder Funez - Last Filed: 10/04/16 14:33> Date of Encounter: 10/04/16 Time of Encounter: 13:45 Assessment and Plan (1) Carotid stenosis, bilateral Status: Acute Carotid ultrasound: Right proximal ICA has a severe, 60-70% stenosis. Left proximal ICA has a critical, 80-99% stenosis. Recommendation for further evaluation. Patient states previous doppler in 2015 showed carotid stenosis at approx 40%. Follow up with Dr. Diaz in 6 weeks to discuss Left CEA. Continue Statin, ASA. (On coumadin for Hx of Atrial fib.) (2) Cerebrovascular accident Status: Acute Hx of Atrial fib. and carotid stenosis previous found at [facility]. Continue ASA, statin, coumadin. Follow up to discuss left CEA with Dr. Diaz in 6 weeks. Qualifiers: CVA mechanism: unspecified Qualified Code(s): I63.9 - Cerebral infarction, unspecified History of Present Illness Consult date: 10/03/16 Reason for consult: other (carotid stenosis) Requesting physician: Jassi Jaramillo History of present illness: Mr. Márquez is a 81 year old male admitted for CVA with right upper extremity weakness that has hence resolved. Only ongoing complaint is of memory loss. Patient underwent confirmation via CT/MRI; neurology consulted, noting he was neurologically stable, but expressing concern for clots from carotid artery vs atria of the heart with history of Atrial fib. Patient states he had a carotid duplex done back in Jul at the [facility] with stenosis approx 40%. Repeat carotid US here showing 60-70% stenosis of Right carotid and 80-99% of left. Patient on coumadin for history of A fib, already on statin therapy, and was started on ASA since admission. Echo completed without mention of clot seen. Past Med Surg Social Fam HX - Past Medical History Source: patient, obtained from family Medical history: atrial fibrillation, coronary artery disease, diabetes, GERD, hyperlipidemia, hypertension Psychiatric history: no psych history - Past Surgical History Surgical History: ureteral stent - Social History Smoking Status: Former smoker Smokeless Tobacco Status: No Alcohol use: none Drug use: none - Family History Father Living Status: Age at : 48 Cause of : [place] Hx Family Cardiac Disorders: Yes Hx Family Cancer: Yes Hx Family GI Disorders: No Hx Family Genitourinary Disorders: No Hx Family Endocrine Disorder: Yes Hx Family Musculoskeletal Disorders: No Hx Family Neuromuscular Disorders: No Hx Family Neurologic Disorders: No Hx Family HEENT Disorders: No Hx Family Autoimmune Disorders: No Hx Family Reproductive Disorders: No Hx Family Psychosocial Disorders: No Hx Family Medical Disorders: No Medications and Allergies Hydrochlorothiazide 25 mg PO DAILY 10/01/16 [History] Insulin ASPART [Novolog Flexpen] 4 unit SQ BID 10/01/16 [History] Insulin ASPART [Novolog Flexpen] 8 unit SQ QPM 10/01/16 [History] Insulin Glargine [Lantus] 36 unit SQ HS 10/01/16 [History] Losartan [Cozaar] 25 mg PO DAILY 10/01/16 [History] Metformin HCl [Metformin HCl ER] 1,000 mg PO QPM 10/01/16 [History] Metoprolol [Lopressor] 12.5 mg PO BID 10/01/16 [History] Pantoprazole Sodium [Protonix] 20 mg PO BID 10/01/16 [History] Simvastatin [Zocor] 80 mg PO QPM 10/01/16 [History] Warfarin [Coumadin] 4 mg PO 1800 10/01/16 [History] Aspirin 81 mg PO DAILY #30 tab.chew 10/03/16 [Rx] Allergies No Known Allergies Allergy (Verified 10/01/16 20:26) Review of Systems All systems PM: A 10-system review of systems was performed and is negative for pertinent findings except as documented above in the HPI. - Constitutional no fatigue, no weakness - EENT Nose, mouth and throat: no dizziness - Cardiovascular no chest pain, no dyspnea - Respiratory no dyspnea - Gastrointestinal no abdominal pain - Musculoskeletal no muscle weakness - Neurological memory loss (with recent CVA), no headache(s) General Surgery Exam Initial Vital Signs Temp Pulse Resp BP Pulse Ox 98.2 F 105 14 170/102 96 10/01/16 18:30 10/01/16 18:30 10/01/16 18:30 10/01/16 18:30 10/01/16 18:30 Exam Initial Vital Signs Temp Pulse Resp BP Pulse Ox 98.2 F 105 14 170/102 96 10/01/16 18:30 10/01/16 18:30 10/01/16 18:30 10/01/16 18:30 10/01/16 18:30 - General physical appearance well developed, well nourished, no distress - Eyes normal ocular movement - ENT normal mucosa, atraumatic, normocephalic - Neck trachea midline - Respiratory normal respiratory effort, clear to auscultation - Abdomen Abdomen: soft, non tender, bowel sounds - Integumentary no rash - Psychiatric oriented to person, oriented to place, speech is normal - Additional Findings Cardiovascular: irregular rhythm, tachycardia Results - Labs 10/03/16 04:00 10/04/16 04:45 Abnormal lab results MCH 27.8 pg (28.0-33.3) L 10/03/16 04:00 RDW 15.1 % (11.5-14.5) H 10/03/16 04:00 MPV 12.9 fL (9.4-12.4) H 10/03/16 04:00 PT 24.8 Seconds (9.4-12.1) H 10/04/16 04:45 APTT 97.4 Seconds (26.0-36.0) H D 10/04/16 04:45 Heparin Anti-Xa, Unfract 0.89 IU/mL (0.30-0.70) H 10/02/16 18:16 Creatinine 1.42 mg/dL (0.72-1.25) H 10/04/16 04:45 Est GFR ( Amer) 58 (> 60) L 10/04/16 04:45 Est GFR (Non-Af Amer) 48 (> 60) L 10/04/16 04:45 Glucose 217 mg/dL (70-99) H 10/04/16 04:45 POC Glucose 228 (58-89) H 10/02/16 06:59 Hemoglobin A1c 8.2 % (-5.6) H 10/03/16 04:00 Triglycerides 214 mg/dL (< 150) H 10/02/16 05:25 VLDL Cholesterol, Calc 43 mg/dL (< 31) H 10/02/16 05:25 HDL Cholesterol 29 mg/dL (40-59) L 10/02/16 05:25 Diabetes panel 10/03/16 10/04/16 Range/Units 04:00 04:45 Sodium 139 (136-145) mEq/L Potassium 4.2 (3.5-4.5) mEq/L Chloride 107 (98-109) mEq/L Carbon Dioxide 21 (19-29) mEq/L BUN 25 (8-26) mg/dL Creatinine 1.42 H (0.72-1.25) mg/dL Glucose 217 H (70-99) mg/dL Hemoglobin A1c 8.2 H ( - 5.6) % Calcium 9.7 (8.6-10.8) mg/dL Calcium panel 10/04/16 Range/Units 04:45 Calcium 9.7 (8.6-10.8) mg/dL Pituitary panel 10/04/16 Range/Units 04:45 Sodium 139 (136-145) mEq/L Potassium 4.2 (3.5-4.5) mEq/L Chloride 107 (98-109) mEq/L Carbon Dioxide 21 (19-29) mEq/L BUN 25 (8-26) mg/dL Creatinine 1.42 H (0.72-1.25) mg/dL Glucose 217 H (70-99) mg/dL Calcium 9.7 (8.6-10.8) mg/dL Adrenal panel 10/04/16 Range/Units 04:45 Sodium 139 (136-145) mEq/L Potassium 4.2 (3.5-4.5) mEq/L Chloride 107 (98-109) mEq/L Carbon Dioxide 21 (19-29) mEq/L BUN 25 (8-26) mg/dL Creatinine 1.42 H (0.72-1.25) mg/dL Glucose 217 H (70-99) mg/dL Calcium 9.7 (8.6-10.8) mg/dL All other labs normal. Consult Discharge Plan - Plan Instructions: Aspirin (By mouth), Atrial Fibrillation (DC), Carotid Artery Disease (DC), Carotid Artery Disease (GEN), Diabetes Mellitus Type 2 in Adults ( DC), Ischemic Stroke (DC), Ischemic Stroke (GEN), Chronic Hypertension (DC), Self Care Measures After a Stroke (DC), Self Care Measures After a Stroke (GEN) Additional Instructions: Follow-up appointments: If there is not an appointment listed below, please call your physician and schedule a follow-up appointment. If you have congestive heart failure and your symptoms return, make an appointment with your physician. Symptoms: If your condition changes or you experience any of the following symptoms, notify your physician immediately: Unusual or worsening pain, fever, persistent nausea and vomiting, bleeding, increase in swelling (especially in your legs), sudden weight gain, extreme dizziness, chest pain, increased drainage or redness from a wound or incision. Go to the emergency department if you experience a problem with breathing. Weights: If you have a history of swelling or shortness of breath, weigh yourself daily and notify your physician if you have a weight gain of two or more pounds in one day or 5 or more pounds in a week. If you experience any of the warning signs for stroke: Sudden numbness or weakness of the face, arm or leg; especially on one side of the body, sudden confusion, trouble speaking or understanding, sudden trouble seeing in one or both eyes, sudden trouble walking, dizziness, loss of balance or coordination, sudden sever headache with no cause; Call 911 or go to the emergency room. Stroke is a medical emergency. Some risk factors for stroke: Age, cigarette smoking, diabetes, excessive alcohol consumption, family history , high blood pressure, overweight, physical inactivity, prior stroke, heart attack, diagnosis of carotid artery stenosis or other artery disease. If you smoke, STOP: Smoking or tobacco use significantly increases your risk of heart and lung disease. Your chance of disease greatly increases if you continue to smoke. For more information, call the [place] tobacco quit line for smoking cessation 0-723- QUIT-NOW ( ) Referrals: Wilton Diaz MD [Partnered Physician] - 10/15/16 10:00 am ( follow-up carotrtery stenosis. 60-79% stenosis on the R, 80-99% n the L. Recent stroke. Discuss Left CEA (6 weeks from hospitalization)) [facility] - 10/15/16 1:00 pm (-TIA discharged on 10/03/16. Only residual deficit is memory . Carotid artery stenosis. ) Prescriptions: Aspirin 81 mg PO DAILY #30 tab.chew <Wilton Diaz - Last Filed: 10/04/16 19:31> Date of Encounter: 10/04/16 Review of Systems All systems PM: A 10-system review of systems was performed and is negative for pertinent findings except as documented above in the HPI. General Surgery Exam Initial Vital Signs Temp Pulse Resp BP Pulse Ox 98.2 F 105 14 170/102 96 10/01/16 18:30 10/01/16 18:30 10/01/16 18:30 10/01/16 18:30 10/01/16 18:30 Exam Initial Vital Signs Temp Pulse Resp BP Pulse Ox 98.2 F 105 14 170/102 96 10/01/16 18:30 10/01/16 18:30 10/01/16 18:30 10/01/16 18:30 10/01/16 18:30 Results - Labs 10/03/16 04:00 10/04/16 04:45 Abnormal lab results MCH 27.8 pg (28.0-33.3) L 10/03/16 04:00 RDW 15.1 % (11.5-14.5) H 10/03/16 04:00 MPV 12.9 fL (9.4-12.4) H 10/03/16 04:00 PT 24.8 Seconds (9.4-12.1) H 10/04/16 04:45 APTT 97.4 Seconds (26.0-36.0) H D 10/04/16 04:45 Heparin Anti-Xa, Unfract 0.89 IU/mL (0.30-0.70) H 10/02/16 18:16 Creatinine 1.42 mg/dL (0.72-1.25) H 10/04/16 04:45 Est GFR ( Amer) 58 (> 60) L 10/04/16 04:45 Est GFR (Non-Af Amer) 48 (> 60) L 10/04/16 04:45 Glucose 217 mg/dL (70-99) H 10/04/16 04:45 POC Glucose 228 (58-89) H 10/02/16 06:59 Hemoglobin A1c 8.2 % (-5.6) H 10/03/16 04:00 Triglycerides 214 mg/dL (< 150) H 10/02/16 05:25 VLDL Cholesterol, Calc 43 mg/dL (< 31) H 10/02/16 05:25 HDL Cholesterol 29 mg/dL (40-59) L 10/02/16 05:25 Diabetes panel 10/03/16 10/04/16 Range/Units 04:00 04:45 Sodium 139 (136-145) mEq/L Potassium 4.2 (3.5-4.5) mEq/L Chloride 107 (98-109) mEq/L Carbon Dioxide 21 (19-29) mEq/L BUN 25 (8-26) mg/dL Creatinine 1.42 H (0.72-1.25) mg/dL Glucose 217 H (70-99) mg/dL Hemoglobin A1c 8.2 H ( - 5.6) % Calcium 9.7 (8.6-10.8) mg/dL Calcium panel 10/04/16 Range/Units 04:45 Calcium 9.7 (8.6-10.8) mg/dL Pituitary panel 10/04/16 Range/Units 04:45 Sodium 139 (136-145) mEq/L Potassium 4.2 (3.5-4.5) mEq/L Chloride 107 (98-109) mEq/L Carbon Dioxide 21 (19-29) mEq/L BUN 25 (8-26) mg/dL Creatinine 1.42 H (0.72-1.25) mg/dL Glucose 217 H (70-99) mg/dL Calcium 9.7 (8.6-10.8) mg/dL Adrenal panel 10/04/16 Range/Units 04:45 Sodium 139 (136-145) mEq/L Potassium 4.2 (3.5-4.5) mEq/L Chloride 107 (98-109) mEq/L Carbon Dioxide 21 (19-29) mEq/L BUN 25 (8-26) mg/dL Creatinine 1.42 H (0.72-1.25) mg/dL Glucose 217 H (70-99) mg/dL Calcium 9.7 (8.6-10.8) mg/dL All other labs normal. - Attending Attestation I examined this patient and my medical decision-making was reviewed with the LEATHER SPONGER/PA/Advanced Practice Nurse/Resident Physician. I agree with the documented findings, disposition and treatment plan as described except to the extent set forth below. Wilton Diaz MD FACS
== END 2016-10-04 15:10 | disposition home or self-care (01) | DRG 65 ==
LOC: EMEROO 18:26 → 2NENU 21:22
PROVIDERS: ADMIT Pediatrics; ATTEND Internal Medicine